=== PATIENT | male | born 1990 | race Caucasian/White ===

== ENCOUNTER 2022-10-28 13:23 | Inpatient (IN) | payer MEDICAID, OTHER ==
[2022-10-28] MEDS ORDERED: SODIUM CHLORIDE 0.9% 1,000 ML IV STA (13:46)
--- NOTE | 2022-10-28 13:50 | ED ---
General Adult HPI - General Source: patient, EMS, RN notes reviewed Mode of arrival: EMS Limitations: altered mental status <Harpal Griffith - Last Filed: 10/28/22 14:57> <He Simpson - Last Filed: 10/29/22 12:47> - General Chief complaint: Psychiatric Symptoms Stated complaint: AMS Time Seen by Provider: 10/28/22 13:25 - History of Present Illness Initial comments: Patient is a pleasant 32-year-old male presenting to the emergency department from the residential with concern for change in mental status. Patient has been there for 2 days. Patient has not slept in those 2 days. Patient has had limited oral intake. Patient has had minimal fluids. Patient has been naked and defecating on the floor. Unclear of any history previously. Patient was transferred from police and was there several days prior to this. They did report that patient had similar odd behavior and also was not sleeping at that time. Patient reportedly did methamphetamine prior to being arrested. Patient is a very poor historian and offers little history. (Harpal Griffith) - Related Data Home Medications Medication Instructions Recorded Confirmed No Known Home Medications 10/29/22 10/29/22 Allergies Allergy/AdvReac Type Severity Reaction Status Date / Time No Known Allergies Allergy Verified 10/29/22 10:56 Review of Systems ROS Other: All systems not noted in ROS Statement are negative. <Harpal Griffith - Last Filed: 10/28/22 14:57> ROS Other: All systems not noted in ROS Statement are negative. <He Simpson - Last Filed: 10/29/22 12:47> ROS Statement: Those systems with pertinent positive or pertinent negative responses have been documented in the HPI. Past Medical History Past Medical History: No Reported History History of Any Multi-Drug Resistant Organisms: None Reported Past Surgical History: No Surgical Hx Reported Past Psychological History: Depression Past Alcohol Use History: None Reported Past Drug Use History: None Reported <Harpal Griffith - Last Filed: 10/28/22 14:57> General Exam Limitations: altered mental status General appearance: alert, in no apparent distress Head exam: Present: atraumatic Eye exam: Present: normal appearance ENT exam: Present: mucous membranes dry Neck exam: Present: normal inspection. Absent: tenderness, meningismus Respiratory exam: Present: normal lung sounds bilaterally Cardiovascular Exam: Present: regular rate, normal rhythm GI/Abdominal exam: Present: soft. Absent: tenderness Extremities exam: Present: normal inspection Neurological exam: Present: alert, altered. Absent: motor sensory deficit Expanded Focused psych exam: Present: delusional (Patient answers that his name is "Pablo "), restlessness, flight of ideas, other (Hyperreligious.) Skin exam: Present: normal color <Harpal Griffith - Last Filed: 10/28/22 14:57> Course Vital Signs 10/28/22 10/28/22 10/29/22 13:25 16:28 09:04 Temperature 99.0 F Pulse Rate 90 78 80 Respiratory 18 18 16 Rate Blood Pressure 149/114 114/78 181/99 O2 Sat by Pulse 99 98 98 Oximetry EKG Findings - EKG Results: EKG: interpreted by ERMDian (Nonspecific ST-T), sinus rhythm, normal axis, normal QRS <Harpal Griffith - Last Filed: 10/28/22 14:57> Medical Decision Making - Lab Data Result diagrams: 10/28/22 14:34 10/28/22 14:34 <Harpal Griffith - Last Filed: 10/28/22 14:57> - Lab Data Result diagrams: 10/28/22 14:34 10/28/22 14:34 <He Simpson - Last Filed: 10/29/22 12:47> - Medical Decision Making Was pt. sent in by a medical professional or institution ([facility], [facility], urgent care, hospital, or usp...) When possible be specific @ -Patient brought in from residential Did you speak to anyone other than the patient for history (EMS, parent, family, police, friend...)? What history was obtained from this source @ -Operations Assistant officers help provide history Did you review nursing and triage notes (agree or disagree)? Why? @ -I reviewed and agree with nursing and triage notes Were old charts reviewed (outside hosp., previous admission, EMS record, old EKG, old radiological studies, urgent care reports/EKG's, usp records)? Report findings @ -No old charts were reviewed Differential Diagnosis (chest pain, altered mental status, abdominal pain women, abdominal pain men, vaginal bleeding, weakness, fever, dyspnea, syncope, headache, dizziness, GI bleed, back pain, seizure, CVA, palpatations, mental health, musculoskeletal)? @ -Differential Mental Health Depression, anxiety, bipolar, psychosis, schizophrenia, borderline personality, situational depression, adjustment disorder, behavioral disorder, brain tumor, malingering, substance abuse, encephalopathy, medication reaction, dementia, hypothyroidism, degenerative neurologic disorder, lupus.... This is not meant to be all-inclusive list EKG interpreted by me (3pts min.). @ -As above X-rays interpreted by me (1pt min.). @ -Chest x-ray does not reveal acute abnormality. CT interpreted by me (1pt min.). @ -Report reviewed U/S interpreted by me (1pt. min.). @ -None done What testing was considered but not performed or refused? (CT, X-rays, U/S, labs)? Why? @ -None What meds were considered but not given or refused? Why? @ -None Did you discuss the management of the patient with other professionals (professionals i.e. , PA, [employer] MODEL, lab, RT, psych nurse, social insurance adviser, assembler deck and hull, teacher, credit administration officer, case filler)? Give summary @ -No Was smoking cessation discussed for >3mins.? @ -No Was critical care preformed (if so, how long)? @ -No Were there social determinants of health that impacted care today? How? (Homelessness, low income, unemployed, alcoholism, drug addiction, transportation, low edu. Level, literacy, decrease access to med. care, residential, rehab)? @ -No Was there de-escalation of care discussed even if they declined (Discuss DNR or withdrawal of care, Hospice)? DNR status @ -No What co-morbidities impacted this encounter? (DM, HTN, Smoking, COPD, CAD, Canc er, CVA, ARF, Chemo, Hep., AIDS, mental health diagnosis, sleep apnea, morbid obesity)? @ -None Was patient admitted / discharged? Hospital course, mention meds given and route, prescriptions, significant lab abnormalities, going to OR and other pertinent info. @ -Patient presents with acute psychosis. Patient will be evaluated by mental health services for this. Undiagnosed new problem with uncertain prognosis? @ -No Drug Therapy requiring intensive monitoring for toxicity (Heparin, Nitro, Insulin, Cardizem)? @ -No Were any procedures done? @ -No Diagnosis/symptom? @ -Psychosis Acute, or Chronic, or Acute on Chronic? @ -Acute Uncomplicated (without systemic symptoms) or Complicated (systemic symptoms)? @ -default Side effects of treatment? @ -No Exacerbation, Progression, or Severe Exacerbation? @ -No Poses a threat to life or bodily function? How? (Chest pain, USA, VT, pneumonia, PE, COPD, DKA, ARF, appy, cholecystitis, CVA, Diverticulitis, Homicidal, Suicidal, threat to staff... and all critical care pts) @ -No (Harpal Griffith) I filled out a clinical certificate to have the patient evaluated upstairs on the psychiatric floor (He Simpson) - Lab Data Lab Results 10/28/22 10/28/22 10/28/22 Range/Units 13:58 14:34 14:34 WBC 13.6 H (3.8-10.6) k/uL RBC 4.80 (4.30-5.90) m/uL Hgb 14.7 (13.0-17.5) gm/dL Hct 43.3 (39.0-53.0) % MCV 90.3 (80.0-100.0) fL MCH 30.6 (25.0-35.0) pg MCHC 33.9 (31.0-37.0) g/dL RDW 12.9 (11.5-15.5) % Plt Count 306 (150-450) k/uL MPV 7.1 Neutrophils % 64 % Lymphocytes % 28 % Monocytes % 6 % Eosinophils % 1 % Basophils % 0 % Neutrophils # 8.6 H (1.3-7.7) k/uL Lymphocytes # 3.8 (1.0-4.8) k/uL Monocytes # 0.8 (0-1.0) k/uL Eosinophils # 0.1 (0-0.7) k/uL Basophils # 0.0 (0-0.2) k/uL PT 12.8 H (9.0-12.0) sec INR 1.3 H (<1.2) APTT 25.9 (22.0-30.0) sec Sodium (137-145) mmol/L Potassium (3.5-5.1) mmol/L Chloride (98-107) mmol/L Carbon Dioxide (22-30) mmol/L Anion Gap mmol/L BUN (9-20) mg/dL Creatinine (0.66-1.25) mg/dL Est GFR (CKD-EPI)AfAm (>60 ml/min/1.73 sqM) Est GFR (CKD-EPI)NonAf (>60 ml/min/1.73 sqM) Glucose (74-99) mg/dL POC Glucose (mg/dL) 95 (70-110) mg/dL POC Glu Bankruptcy Assistant ID Leti Brantley Calcium (8.4-10.2) mg/dL Total Bilirubin (0.2-1.3) mg/dL AST (17-59) U/L ALT (4-49) U/L Alkaline Phosphatase (38-126) U/L Creatine Kinase (55-170) U/L Total Protein (6.3-8.2) g/dL Albumin (3.5-5.0) g/dL Urine Color Urine Appearance (Clear) Urine pH (5.0-8.0) Ur Specific [place] (1.001-1.035) Urine Protein (Negative) Urine Glucose (UA) (Negative) Urine Ketones (Negative) Urine Blood (Negative) Urine Nitrite (Negative) Urine Bilirubin (Negative) Urine Urobilinogen (<2.0) mg/dL Ur Leukocyte Esterase (Negative) Urine RBC (0-5) /hpf Urine WBC (0-5) /hpf Amorphous Sediment (None) /hpf Hyaline Casts (0-2) /lpf Urine Mucus (None) /hpf Urine Opiates Screen (NotDetected) Ur Oxycodone Screen (NotDetected) Urine Methadone Screen (NotDetected) Ur Propoxyphene Screen (NotDetected) Ur Barbiturates Screen (NotDetected) U Tricyclic Antidepress (NotDetected) Ur Phencyclidine Scrn (NotDetected) Ur Amphetamines Screen (NotDetected) U Methamphetamines Scrn (NotDetected) U Benzodiazepines Scrn (NotDetected) Urine Cocaine Screen (NotDetected) U Marijuana (THC) Screen (NotDetected) Serum Alcohol mg/dL Coronavirus (PCR) (Not Detectd) 10/28/22 10/28/22 10/28/22 Range/Units 14:34 15:40 15:40 WBC (3.8-10.6) k/uL RBC (4.30-5.90) m/uL Hgb (13.0-17.5) gm/dL Hct (39.0-53.0) % MCV (80.0-100.0) fL MCH (25.0-35.0) pg MCHC (31.0-37.0) g/dL RDW (11.5-15.5) % Plt Count (150-450) k/uL MPV Neutrophils % % Lymphocytes % % Monocytes % % Eosinophils % % Basophils % % Neutrophils # (1.3-7.7) k/uL Lymphocytes # (1.0-4.8) k/uL Monocytes # (0-1.0) k/uL Eosinophils # (0-0.7) k/uL Basophils # (0-0.2) k/uL PT (9.0-12.0) sec INR (<1.2) APTT (22.0-30.0) sec Sodium 137 (137-145) mmol/L Potassium 3.8 (3.5-5.1) mmol/L Chloride 103 (98-107) mmol/L Carbon Dioxide 18 L (22-30) mmol/L Anion Gap 16 mmol/L BUN 24 H (9-20) mg/dL Creatinine 1.02 (0.66-1.25) mg/dL Est GFR (CKD-EPI)AfAm >90 (>60 ml/min/1.73 sqM) Est GFR (CKD-EPI)NonAf >90 (>60 ml/min/1.73 sqM) Glucose 88 (74-99) mg/dL POC Glucose (mg/dL) (70-110) mg/dL POC Glu Bankruptcy Assistant ID Calcium 9.7 (8.4-10.2) mg/dL Total Bilirubin 1.9 H (0.2-1.3) mg/dL AST 39 (17-59) U/L ALT 35 (4-49) U/L Alkaline Phosphatase 75 (38-126) U/L Creatine Kinase 308 H (55-170) U/L Total Protein 8.7 H (6.3-8.2) g/dL Albumin 5.0 (3.5-5.0) g/dL Urine Color Urine Appearance (Clear) Urine pH (5.0-8.0) Ur Specific [place] (1.001-1.035) Urine Protein (Negative) Urine Glucose (UA) (Negative) Urine Ketones (Negative) Urine Blood (Negative) Urine Nitrite (Negative) Urine Bilirubin (Negative) Urine Urobilinogen (<2.0) mg/dL Ur Leukocyte Esterase (Negative) Urine RBC (0-5) /hpf Urine WBC (0-5) /hpf Amorphous Sediment (None) /hpf Hyaline Casts (0-2) /lpf Urine Mucus (None) /hpf Urine Opiates Screen (NotDetected) Ur Oxycodone Screen (NotDetected) Urine Methadone Screen (NotDetected) Ur Propoxyphene Screen (NotDetected) Ur Barbiturates Screen (NotDetected) U Tricyclic Antidepress (NotDetected) Ur Phencyclidine Scrn (NotDetected) Ur Amphetamines Screen (NotDetected) U Methamphetamines Scrn (NotDetected) U Benzodiazepines Scrn (NotDetected) Urine Cocaine Screen (NotDetected) U Marijuana (THC) Screen (NotDetected) Serum Alcohol <10 mg/dL Coronavirus (PCR) (Not Detectd) 10/28/22 10/28/22 Range/Units 18:48 22:00 WBC (3.8-10.6) k/uL RBC (4.30-5.90) m/uL Hgb (13.0-17.5) gm/dL Hct (39.0-53.0) % MCV (80.0-100.0) fL MCH (25.0-35.0) pg MCHC (31.0-37.0) g/dL RDW (11.5-15.5) % Plt Count (150-450) k/uL MPV Neutrophils % % Lymphocytes % % Monocytes % % Eosinophils % % Basophils % % Neutrophils # (1.3-7.7) k/uL Lymphocytes # (1.0-4.8) k/uL Monocytes # (0-1.0) k/uL Eosinophils # (0-0.7) k/uL Basophils # (0-0.2) k/uL PT (9.0-12.0) sec INR (<1.2) APTT (22.0-30.0) sec Sodium (137-145) mmol/L Potassium (3.5-5.1) mmol/L Chloride (98-107) mmol/L Carbon Dioxide (22-30) mmol/L Anion Gap mmol/L BUN (9-20) mg/dL Creatinine (0.66-1.25) mg/dL Est GFR (CKD-EPI)AfAm (>60 ml/min/1.73 sqM) Est GFR (CKD-EPI)NonAf (>60 ml/min/1.73 sqM) Glucose (74-99) mg/dL POC Glucose (mg/dL) (70-110) mg/dL POC Glu Bankruptcy Assistant ID Calcium (8.4-10.2) mg/dL Total Bilirubin (0.2-1.3) mg/dL AST (17-59) U/L ALT (4-49) U/L Alkaline Phosphatase (38-126) U/L Creatine Kinase (55-170) U/L Total Protein (6.3-8.2) g/dL Albumin (3.5-5.0) g/dL Urine Color Yellow Urine Appearance Clear (Clear) Urine pH 6.0 (5.0-8.0) Ur Specific [place] 1.036 H (1.001-1.035) Urine Protein 1+ H (Negative) Urine Glucose (UA) Negative (Negative) Urine Ketones 3+ H (Negative) Urine Blood Trace H (Negative) Urine Nitrite Negative (Negative) Urine Bilirubin Negative (Negative) Urine Urobilinogen 2.0 (<2.0) mg/dL Ur Leukocyte Esterase Negative (Negative) Urine RBC 6 H (0-5) /hpf Urine WBC 5 (0-5) /hpf Amorphous Sediment Rare H (None) /hpf Hyaline Casts 9 H (0-2) /lpf Urine Mucus Many H (None) /hpf Urine Opiates Screen Not Detected (NotDetected) Ur Oxycodone Screen Not Detected (NotDetected) Urine Methadone Screen Not Detected (NotDetected) Ur Propoxyphene Screen Not Detected (NotDetected) Ur Barbiturates Screen Not Detected (NotDetected) U Tricyclic Antidepress Not Detected (NotDetected) Ur Phencyclidine Scrn Not Detected (NotDetected) Ur Amphetamines Screen Not Detected (NotDetected) U Methamphetamines Scrn Not Detected (NotDetected) U Benzodiazepines Scrn Not Detected (NotDetected) Urine Cocaine Screen Not Detected (NotDetected) U Marijuana (THC) Screen Detected H (NotDetected) Serum Alcohol mg/dL Coronavirus (PCR) Not Detected (Not Detectd) Disposition Is patient prescribed a controlled substance at d/c from ED?: No <Harpal Griffith - Last Filed: 10/28/22 14:57> Time of Disposition: 12:47 <He Simpson - Last Filed: 10/29/22 12:47> Clinical Impression: Psychosis Disposition: ADMITTED IP TO THIS HOSP Referrals: None,Stated [Primary Care Provider] - 1-2 days
[2022-10-28 14:00] LABS: Glucose,Whole Blood 95 mg/dL (70-110)
--- NOTE | 2022-10-28 14:16 | XR ---
EXAMINATION TYPE: XR chest 1V DATE OF EXAM: 10/28/2022 COMPARISON: NONE HISTORY: Psychiatric symptoms, altered mental status TECHNIQUE: Single frontal view of the chest is obtained. FINDINGS: There is no focal air space opacity, pleural effusion, or pneumothorax seen. The cardiac silhouette size is within normal limits. The osseous structures are intact. IMPRESSION: No acute process.
--- NOTE | 2022-10-28 14:18 | CT ---
EXAMINATION TYPE: CT brain wo con DATE OF EXAM: 10/28/2022 COMPARISON: None HISTORY: ams CT DLP: 1409.3 mGycm. Automated Exposure Control for Dose Reduction was Utilized. TECHNIQUE: CT scan of the head is performed without contrast. FINDINGS: There is no acute intracranial hemorrhage, mass effect, or midline shift identified. The ventricles and sulci are within normal limits in size. There is no air-fluid level in the left maxillary sinus consistent with acute sinusitis. The remainin g paranasal sinuses and mastoid air cells are well aerated. The globes are intact. IMPRESSION: 1. No acute bleed or mass effect. 2. Acute sinusitis involving the left maxillary sinus.
[2022-10-28 14:43] LABS: Basophils % (A) 0 %; Eosinophils # (A) 0.1 k/uL (0-0.7); Eosinophils % (A) 1 %; HCT 43.3 % (39.0-53.0); HGB 14.7 gm/dL (13.0-17.5); Lymphocytes # (A) 3.8 k/uL (1.0-4.8); Lymphocytes % (A) 28 %; MCH 30.6 pg (25.0-35.0); MCHC 33.9 g/dL (31.0-37.0); MCV 90.3 fL (80.0-100.0); Mean Platelet Volume 7.1; Monocytes # (A) 0.8 k/uL (0-1.0); Monocytes % (A) 6 %; Neutrophils # (A) 8.6 k/uL (1.3-7.7); Neutrophils % (A) 64 %; Platelet Count 306 k/uL (150-450); RDW 12.9 % (11.5-15.5); WBC 13.6 k/uL (3.8-10.6)
[2022-10-28 14:52] LABS: ALT 35 U/L (4-49); AST 39 U/L (17-59); African American GFR (CKD) >90 (>60 ml/min/1.73 sqM); Alkaline Phosphatase 75 U/L (38-126); Anion Gap 16 mmol/L; Blood Urea Nitrogen 24 mg/dL (9-20); Calcium 9.7 mg/dL (8.4-10.2); Carbon Dioxide 18 mmol/L (22-30); Chloride 103 mmol/L (98-107); Glucose 88 mg/dL (74-99); Non-African American GFR(CKD) >90 (>60 ml/min/1.73 sqM); Potassium 3.8 mmol/L (3.5-5.1); Sodium 137 mmol/L (137-145); Total Bilirubin 1.9 mg/dL (0.2-1.3); Total Protein 8.7 g/dL (6.3-8.2)
[2022-10-28 14:56] LABS: INR 1.3 (<1.2); Partial Thromboplastin Time 25.9 sec (22.0-30.0); Prothrombin Time 12.8 sec (9.0-12.0)
[2022-10-28 19:29] LABS: Amorphous Sediment,Urine Rare /hpf; Appearance,Urine Clear (Clear); Bilirubin,Urine Negative (Negative); Blood,Urine Trace (Negative); Color,Urine Yellow; Glucose,Urine (UA) Negative (Negative); Hyaline Casts,Urine 9 /lpf (0-2); Ketones,Urine 3+ (Negative); Leukocyte Esterase,Urine Negative (Negative); Mucus,Urine Many /hpf; Nitrite,Urine Negative (Negative); Protein,Urine 1+ (Negative); RBC,Urine 6 /hpf (0-5); Specific Gravity,Urine 1.036 (1.001-1.035); WBC,Urine 5 /hpf (0-5)
[2022-10-28 20:10] LABS: Amphetamine Screen,Urine Not Detected (NotDetected); Barbiturate Screen,Urine Not Detected (NotDetected); Benzodiazepines Screen,Urine Not Detected (NotDetected); Cocaine Screen,Urine Not Detected (NotDetected); Methadone Screen, Urine Not Detected (NotDetected); Opiate Screen,Urine Not Detected (NotDetected); Oxycodone Screen, Urine Not Detected (NotDetected); Phencyclidine Screen,Urine Not Detected (NotDetected); Tricyclic Antidepressant,Urine Not Detected (NotDetected); Urn Cannabinoid Scrn Detected (NotDetected)
[2022-10-29] MEDS ORDERED: OLANZapine 10 MG VIAL IM STA ×2 (01:19→11:50)
[2022-10-29] MEDS ORDERED: LORazepam 2 MG/ML INJ IM STA ×2 (02:04→12:43)
[2022-10-29] MEDS ORDERED: diphenhydrAMINE 50 MG/ML 1 ML VIAL IM STA (02:04)
[2022-10-29] MEDS ORDERED: OLANZapine 10 MG VIAL IM PRN (15:41)
[2022-10-29] MEDS ORDERED: OLANZapine 7.5 MG TAB PO PRN (15:41)
[2022-10-29] MEDS ORDERED: IBUPROFEN 600 MG TAB PO PRN (15:41)
[2022-10-29] MEDS ORDERED: MAGNESIUM HYDROXIDE 2,400 MG/30 ML CUP PO PRN (15:41)
[2022-10-29] MEDS ORDERED: MAG HYDROX/AL HYDROX/SIMETH 30 ML CUP PO PRN (15:41)
[2022-10-29] MEDS ORDERED: OLANZapine 10 MG TAB PO PRN (15:53)
[2022-10-29] MEDS ORDERED: HALOPERIDOL LACTATE 5 MG/ML 1 ML VIAL IM PRN (22:44)
[2022-10-29] MEDS ORDERED: LORazepam 2 MG/ML INJ IM PRN (22:45)
[2022-10-30] MEDS ORDERED: HALOPERIDOL LACTATE 5 MG/ML 1 ML VIAL IM STA (01:42)
[2022-10-30] MEDS: haloperidoL 5 MG TAB PO PRN ×2 (10:57→18:23)
[2022-10-30] MEDS: LORazepam 1 MG TAB PO PRN ×3 (10:58→21:15)
[2022-10-30 11:33] VITALS: BMI 17.6
[2022-10-30] MEDS ORDERED: traZODone HCL 100 MG TAB PO PRN (12:02)
--- NOTE | 2022-10-30 12:08 | P.HP ---
Psychiatric H&P - . H&P Date: 10/30/22 History & Physical: Allergies Allergy/AdvReac Type Severity Reaction Status Date / Time No Known Allergies Allergy Verified 10/29/22 10:56 Vital Signs Temp 98.7 F 10/29/22 16:28 Pulse 116 H 10/29/22 16:28 Resp 14 10/29/22 16:28 BP 143/91 10/29/22 16:28 Pulse Ox 97 10/29/22 16:28 FiO2 Intake & Output 10/29/22 10/30/22 10/30/22 18:59 06:59 18:59 Weight 58.967 kg Laboratory Last Values WBC 13.6 k/uL (3.8-10.6) H 10/28/22 14:34 RBC 4.80 m/uL (4.30-5.90) 10/28/22 14:34 Hgb 14.7 gm/dL (13.0-17.5) 10/28/22 14:34 Hct 43.3 % (39.0-53.0) 10/28/22 14:34 MCV 90.3 fL (80.0-100.0) 10/28/22 14:34 MCH 30.6 pg (25.0-35.0) 10/28/22 14:34 MCHC 33.9 g/dL (31.0-37.0) 10/28/22 14:34 RDW 12.9 % (11.5-15.5) 10/28/22 14:34 Plt Count 306 k/uL (150-450) 10/28/22 14:34 MPV 7.1 10/28/22 14:34 Neutrophils % 64 % 10/28/22 14:34 Lymphocytes % 28 % 10/28/22 14:34 Monocytes % 6 % 10/28/22 14:34 Eosinophils % 1 % 10/28/22 14:34 Basophils % 0 % 10/28/22 14:34 Neutrophils # 8.6 k/uL (1.3-7.7) H 10/28/22 14:34 Lymphocytes # 3.8 k/uL (1.0-4.8) 10/28/22 14:34 Monocytes # 0.8 k/uL (0-1.0) 10/28/22 14:34 Eosinophils # 0.1 k/uL (0-0.7) 10/28/22 14:34 Basophils # 0.0 k/uL (0-0.2) 10/28/22 14:34 PT 12.8 sec (9.0-12.0) H 10/28/22 14:34 INR 1.3 (<1.2) H 10/28/22 14:34 APTT 25.9 sec (22.0-30.0) 10/28/22 14:34 Sodium 137 mmol/L (137-145) 10/28/22 14:34 Potassium 3.8 mmol/L (3.5-5.1) 10/28/22 14:34 Chloride 103 mmol/L (98-107) 10/28/22 14:34 Carbon Dioxide 18 mmol/L (22-30) L 10/28/22 14:34 Anion Gap 16 mmol/L 10/28/22 14:34 BUN 24 mg/dL (9-20) H 10/28/22 14:34 Creatinine 1.02 mg/dL (0.66-1.25) 10/28/22 14:34 Est GFR (CKD-EPI)AfAm >90 (>60 ml/min/1.73 sqM) 10/28/22 14:34 Est GFR (CKD-EPI)NonAf >90 (>60 ml/min/1.73 sqM) 10/28/22 14:34 Glucose 88 mg/dL (74-99) 10/28/22 14:34 POC Glucose (mg/dL) 95 mg/dL (70-110) 10/28/22 13:58 POC Glu Service Order Dispatcher Chief ID Leti Brantley 10/28/22 13:58 Calcium 9.7 mg/dL (8.4-10.2) 10/28/22 14:34 Total Bilirubin 1.9 mg/dL (0.2-1.3) H 10/28/22 14:34 AST 39 U/L (17-59) 10/28/22 14:34 ALT 35 U/L (4-49) 10/28/22 14:34 Alkaline Phosphatase 75 U/L (38-126) 10/28/22 14:34 Creatine Kinase 308 U/L (55-170) H 10/28/22 15:40 Total Protein 8.7 g/dL (6.3-8.2) H 10/28/22 14:34 Albumin 5.0 g/dL (3.5-5.0) 10/28/22 14:34 TSH 0.701 mIU/L (0.465-4.680) 10/28/22 14:30 Urine Color Yellow 10/28/22 18:48 Urine Appearance Clear (Clear) 10/28/22 18:48 Urine pH 6.0 (5.0-8.0) 10/28/22 18:48 Ur Specific [place] 1.036 (1.001-1.035) H 10/28/22 18:48 Urine Protein 1+ (Negative) H 10/28/22 18:48 Urine Glucose (UA) Negative (Negative) 10/28/22 18:48 Urine Ketones 3+ (Negative) H 10/28/22 18:48 Urine Blood Trace (Negative) H 10/28/22 18:48 Urine Nitrite Negative (Negative) 10/28/22 18:48 Urine Bilirubin Negative (Negative) 10/28/22 18:48 Urine Urobilinogen 2.0 mg/dL (<2.0) 10/28/22 18:48 Ur Leukocyte Esterase Negative (Negative) 10/28/22 18:48 Urine RBC 6 /hpf (0-5) H 10/28/22 18:48 Urine WBC 5 /hpf (0-5) 10/28/22 18:48 Amorphous Sediment Rare /hpf (None) H 10/28/22 18:48 Hyaline Casts 9 /lpf (0-2) H 10/28/22 18:48 Urine Mucus Many /hpf (None) H 10/28/22 18:48 Urine Opiates Screen Not Detected (NotDetected) 10/28/22 18:48 Ur Oxycodone Screen Not Detected (NotDetected) 10/28/22 18:48 Urine Methadone Screen Not Detected (NotDetected) 10/28/22 18:48 Ur Propoxyphene Screen Not Detected (NotDetected) 10/28/22 18:48 Ur Barbiturates Screen Not Detected (NotDetected) 10/28/22 18:48 U Tricyclic Antidepress Not Detected (NotDetected) 10/28/22 18:48 Ur Phencyclidine Scrn Not Detected (NotDetected) 10/28/22 18:48 Ur Amphetamines Screen Not Detected (NotDetected) 10/28/22 18:48 U Methamphetamines Scrn Not Detected (NotDetected) 10/28/22 18:48 U Benzodiazepines Scrn Not Detected (NotDetected) 10/28/22 18:48 Urine Cocaine Screen Not Detected (NotDetected) 10/28/22 18:48 U Marijuana (THC) Screen Detected (NotDetected) H 10/28/22 18:48 Serum Alcohol <10 mg/dL 10/28/22 15:40 Coronavirus (PCR) Not Detected (Not Detectd) 10/28/22 22:00 10/30/22 11:38 IDENTIFYING DATA: Patient is a 32-year-old male, currently lives with his grandmother in a house, 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 Patient apparently was in the nursing home for about 2 days. Patient was having mental status changes. According to report and auscultation. Patient has been having poor sleep or oral intake, has been naked defecating on the floor, acting psychotic and also has been reporting methamphetamine abuse. Patient's urine drug is positive for THC only. Patient had a computed tomography scan of his brain which did not show any acute changes. Patient has received several when necessary's in the ER and also on the psychiatric unit as he is admitted involuntary for aggression and agitation and bizarre and inappropriate behavior. Patient is currently on a one-to-one sitter. Patient was seen today in agreeable to speak to blog writer in the hallway. Patient states that he "called the wrong number" and states that he feels like he is in a "space ship". He made several bizarre and illogical statements had loose associations, he was rambling at times. He was bizarre and responding to internal stimuli. He spoke about himself and third person. He referred to being in the hospital as "just a game". He was also endorsing paranoia towards others. Had poor impulse control poor reality testing. He believes that it is "09/01/2022 however does know where he isn'this full name. Patient denies any suicidal or homicidal ideations intent or plan. At this time patient denies any auditory or visual hallucinations. Patient was admitting to using methamphetamine "all day" and has a history of repeated use. He also states that he smokes marijuana heavily, has been drinking alcohol as well however he claims that it is occasional. PAST PSYCHIATRIC HISTORY: Patient states that he has no previous psychiatric history however does abuse substances including methamphetamine. Patient denies being on any psychiatric medications. Patient denies any previous psychiatric hospitalizations. Patient denies any psychiatric outpatient follow-up. Patient denies any history of suicide attempts in the past. Past Medical History: No Reported History History of Any Multi-Drug Resistant Organisms: None Reported Past Surgical History: No Surgical Hx Reported Past Psychological History: Depression Past Alcohol Use History: None Reported Past Drug Use History: None Reported ALLERGIES: as per EMR CHEMICAL DEPENDENCY HISTORY: as per HPI FAMILY PSYCHIATRIC/SUBSTANCE USE HISTORY: denies SOCIAL HISTORY: Patient was born and raised in [facility]. States that now he lives in [place] and is a dual citizen, he lives with his grandmother and house. 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 He denies having any kids he is not . He came from nursing home before coming into the hospital MENTAL STATUS EXAM: General Appearance: Patient appears to be unshaven, disheveled unkempt hair, stated age is alert, bizarre, responding to internal stimuli. Patient appears to have poor hygiene and grooming. Behavior: Patient is seated without any agitated behavior. Arron, paranoid, resp onding to internal stimuli. Speech: Patient's speech is fluent and nonpressured. Rambling. Mood/Affect: Patient reports their mood is "okay", affect is incongruent and constricted. Suicidality/Homicidality: Patient denies having any homicidal ideation intent or plan. Denies any suicidal ideations intent or plan Perceptions: Patient denies any visual hallucinations and denies any auditory hallucinations Though content/process: Bizarre content, rambling, illogical, loose associations. Paranoia. Memory and concentration: AOX2, is not know today's date, difficult to redirect in conversation. Cannot spell "WORLD" backwards Judgment and insight: poor STRENGTHS/WEAKNESSES: strength is that patient is resilient. Weakness is that patient has poor judgment and is impulsive INTELLECT: average IMPRESSIONS: Psychosis unspecified, rule out substance-induced psychotic disorder Methamphetamine use disorder Cannabis use disorder Nicotine dependence PLAN: -Patient is admitted under involuntary status to MHU for stabilization of psychiatric symptoms and safety. Patient has not signed adult voluntary form and medication consent and is placed in patient's chart. A second certification was completed and along with petition will be filed for court. -Medications : Will start patient on paliperidone by mouth 3 mg twice a day for psychosis, trazodone when necessary for insomnia. -Ativan and Haldol PRN for agitation/aggression -Patient was informed of the risks, benefits and side effects of the medication -Internal Medicine consult to perform medical evaluation and physical. -NRT - nicotine patch -SW on board for discharge planning. Encourage patient to participate in groups to work on coping skills. Will await deferral and court date. 10/30/22 12:03 10/30/22 12:08
[2022-10-30] MEDS: NICOTINE 14MG/24HR PATCH TRANSDERM SCH (13:58)
[2022-10-30] MEDS: PALIPERIDONE 3 MG TAB.ER.24 PO SCH ×3 (13:58→21:15)
[2022-10-30 17:56] LABS: Chol/HDL Ratio 4.34 Ratio; LDL Cholesterol,Calculated 106.2 mg/dL (0.0-131.0); VLDL Calculation 17.72 mg/dL (5.00-40.00)
[2022-10-30] MEDS: cloNIDine HCL 0.1 MG TAB PO PRN (18:26)
--- NOTE | 2022-10-31 04:15 | P.PN ---
Progress Note - Text Progress Note Date: 10/30/22 patient continues to be psychotic , inappropriate for interview
--- NOTE | 2022-10-31 04:16 | P.PN ---
Progress Note - Text Progress Note Date: 10/29/22 aggressive, psychotic patient , cant evaluate at this time
[2022-10-31] MEDS: PALIPERIDONE 3 MG TAB.ER.24 PO SCH (08:33)
[2022-10-31] MEDS: NICOTINE 14MG/24HR PATCH TRANSDERM SCH (08:33)
[2022-10-31] MEDS: amLODIPine 5 MG TAB PO SCH (08:33)
[2022-10-31] MEDS: ACETAMINOPHEN TAB 325 MG TAB PO PRN (08:34)
--- NOTE | 2022-10-31 14:49 | P.PN ---
Progress Note - Text Progress Note Date: 10/31/22 Interval history: Patient was seen today wandering the hallways and was agreeable to be seen by loan underwriter. he continues to be on a 1 to 1 sitter. Patient was also noted earlier to be attending groups. He continues to have a fairly constricted affect. He claims that he would like to have his glasses back. He claims that he has at his home with his grandmother however she is not answering the phone. He states that "can I just leave for a little bit to get my glasses and I'll come back". She continues to have fairly poor insight and judgment, was illogical at times however this is improving. He is still responding to internal stimuli however this is also improving. Apparently patient claims that he slept better last night. He has been interacting more with others. He is denying any depression or anxiety at this time. He was less bizarre during interaction and more on topic. Denying any auditory or visual hallucinations. Denying any suicidal or homicidal ideations intent or plan. Mental status examination: General Appearance: Patient appears to be unshaven, stated age is alert, bizarre, less responding to internal stimuli. Patient appears to have improving hygiene and grooming. Behavior: Patient is seated without any agitated behavior. Bizarre, less paranoid, responding to internal stimuli. Speech: Patient's speech is fluent and nonpressured. Rambling. Mood/Affect: Patient reports their mood is "ok", affect is incongruent and constricted. Suicidality/Homicidality: Patient denies having any homicidal ideation intent or plan. Denies any suicidal ideations intent or plan Perceptions: Patient denies any visual hallucinations and denies any auditory hallucinations Though content/process: Bizarre content, rambling, illogical, loose associations. Paranoia last Memory and concentration: AOX2-3, difficult to redirect in conversation Judgment and insight: poor, improving mildly IMPRESSIONS: Psychosis unspecified, rule out substance-induced psychotic disorder Methamphetamine use disorder Cannabis use disorder Nicotine dependence PLAN: -Patient is admitted under involuntary status to MHU for stabilization of psychiatric symptoms and safety. Patient has not signed adult voluntary form and medication consent and is placed in patient's chart. A second certification was completed and along with petition will be filed for court. -Medications : Increase paliperidone by mouth 3 mg day + 6 mg qhs for psychosis, trazodone 100 mg when necessary for insomnia. -Ativan and Haldol PRN for agitation/aggression -NRT - nicotine patch -SW on board for discharge planning. Encourage patient to participate in groups to work on coping skills. patient deferred and is agreeable to treatment. continue with 1:1 sitter for now.
[2022-10-31] MEDS: cloNIDine HCL 0.1 MG TAB PO PRN (20:13)
[2022-10-31] MEDS: LORazepam 1 MG TAB PO PRN (20:13)
[2022-10-31] MEDS ORDERED: PALIPERIDONE 6 MG TAB.ER.24 PO SCH (21:00)
[2022-11-01] MEDS: amLODIPine 5 MG TAB PO SCH (09:24)
[2022-11-01] MEDS: PALIPERIDONE 3 MG TAB.ER.24 PO SCH ×2 (09:24→20:26)
[2022-11-01] MEDS: NICOTINE 14MG/24HR PATCH TRANSDERM SCH (09:26)
[2022-11-01] MEDS ORDERED: chlorproMAZINE 25 MG TAB PO ONE (10:33)
[2022-11-01] MEDS: cloNIDine HCL 0.1 MG TAB PO PRN (10:54)
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
[2022-11-01] MEDS: LORazepam 1 MG TAB PO PRN (18:24)
[2022-11-02] MEDS: haloperidoL 5 MG TAB PO PRN (01:03)
[2022-11-02] MEDS: amLODIPine 5 MG TAB PO SCH (08:16)
[2022-11-02] MEDS: NICOTINE 14MG/24HR PATCH TRANSDERM SCH (08:16)
[2022-11-02] MEDS: PALIPERIDONE 3 MG TAB.ER.24 PO SCH ×2 (08:17→20:14)
--- NOTE | 2022-11-02 11:29 | P.PN ---
Progress Note - Text Progress Note Date: 11/02/22 Interval history: Patient was seen today wandering the hallways and was agreeable to be seen by lyric writer. He was seen participating in group today. He is not on a sitter anymore. He was also seen talking to the clinical nursing assistant. Patient appears to be more directable today. He claims that he is reading a book now that his mother brought him. He was apologetic for what had occurred and knows that he was in [facility] previously. He has been taking his medications, not reporting any side effects. He was more appropriate today, mildly improving insight and judgment. He is denying any irritability, states that the racing thoughts have been improving, he was more on topic and less tangential. He is not responding to internal stimuli. he claims that he had difficulty with sleep last night and requested medications extra. He is denying any depression or anxiety at this time. Denying any auditory or visual hallucinations. Denying any suicidal or homicidal ideations intent or plan. Mental status examination: General Appearance: Patient appears to be unshaven, stated age is alert, less bi zarre,not responding to internal stimuli. Patient appears to have improving hygiene and grooming. Behavior: Patient is seated without any agitated behavior. less paranoid Speech: Patient's speech is fluent and nonpressured. Rambling, improving Mood/Affect: Patient reports their mood is "better", affect is incongruent and constricted. Suicidality/Homicidality: Patient denies having any homicidal ideation intent or plan. Denies any suicidal ideations intent or plan Perceptions: Patient denies any visual hallucinations and denies any auditory hallucinations Though content/process: less Bizarre content, rambling,more logical, Paranoia less Memory and concentration: AOX2-3, difficult to redirect in conversation Judgment and insight: poor, improving mildly IMPRESSIONS: Psychosis unspecified, rule out substance-induced psychotic disorder Methamphetamine use disorder Cannabis use disorder Nicotine dependence PLAN: -Patient is admitted under involuntary status to MHU for stabilization of psychiatric symptoms and safety. Patient has not signed adult voluntary form and medication consent and is placed in patient's chart. -Medications : paliperidone by mouth 3 mg day + 9 mg qhs for psychosis, will need to give patient GASTON Perseris likely saturday to ensure compliance. trazodone 100 mg qhs for insomnia. -Ativan and Haldol PRN for agitation/aggression -NRT - nicotine patch -SW on board for discharge planning. Encourage patient to participate in groups to work on coping skills. patient deferred and is agreeable to treatment. possible discharge early next week if patient continues to improve, he continues to be a [facility] hold. will need to give GASTON likely saturday, possible d/c saturday
[2022-11-02] MEDS: LORazepam 1 MG TAB PO PRN (16:40)
[2022-11-02] MEDS: traZODone HCL 100 MG TAB PO SCH (20:14)
[2022-11-03] MEDS: amLODIPine 5 MG TAB PO SCH (07:54)
[2022-11-03] MEDS: PALIPERIDONE 3 MG TAB.ER.24 PO SCH ×2 (07:55→20:31)
[2022-11-03] MEDS: NICOTINE 14MG/24HR PATCH TRANSDERM SCH (07:55)
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
[2022-11-03] MEDS: LORazepam 1 MG TAB PO PRN ×2 (09:07→14:34)
[2022-11-03] MEDS: traZODone HCL 100 MG TAB PO SCH (20:31)
[2022-11-04 07:03] VITALS: RESP 16
[2022-11-04] MEDS: NICOTINE 14MG/24HR PATCH TRANSDERM SCH (08:22)
[2022-11-04] MEDS: amLODIPine 5 MG TAB PO SCH (08:22)
[2022-11-04] MEDS: PALIPERIDONE 3 MG TAB.ER.24 PO SCH ×2 (08:22→19:54)
[2022-11-04] MEDS: LORazepam 1 MG TAB PO PRN ×3 (08:26→20:35)
--- NOTE | 2022-11-04 09:50 | P.PN ---
Subjective Progress Note Date: 11/04/22 Principal diagnosis: IMPRESSIONS: Psychosis unspecified, rule out substance-induced psychotic disorder Methamphetamine use disorder Cannabis use disorder Nicotine dependence Interval history: Patient came readily for an interview. He has been participating well in the program. He has been taking his medications, not reporting any side effects. He points out that in the past he was prescribed Xanax and 20 mg of Paxil by his doctor in [place]. He says that he has not been experiencing any depression on the current medicine or having any sense of withdrawal off the Paxil and Xanax. He says that he slept well last night. Denying any auditory or visual hallucinations. Denying any suicidal or homicidal ideations intent or plan. He says that he does not have a long-term history of psychosis but that he does have a long-term history of running away from life into video games marijuana and other substances. He wants to go to rehab to stay off of marijuana and othe r substances. Mental status examination: Pleasant alert good eye contact General Appearance: Patient appears to have reasonable self-care is cooperative Behavior: Patient is seated without any agitated behavior. I could not detect any paranoia Speech: Patient's speech is fluent he is quite intelligent but did jump in and finish my sentences for me at times and he was on topic just a little pressured. Mood/Affect: Patient reports their mood is "better", affect is congruent Suicidality/Homicidality: Patient denies having any homicidal ideation intent or plan. Denies any suicidal ideations intent or plan Perceptions: Patient denies any visual hallucinations and denies any auditory hallucinations Though content/process: less Bizarre content, rambling,more logical, Paranoia less Memory and concentration: AOX2-3, difficult to redirect in conversation Judgment and insight: poor, improving mildly Assessment: Patient seems be doing better and I do agree that he will need to go to rehab otherwise such as get back into trying some other substances makes him crazy. He is tolerating the current medicine and it does seem to be helping IMPRESSIONS: Psychosis unspecified, rule out substance-induced psychotic disorder Methamphetamine use disorder Cannabis use disorder Nicotine dependence PLAN: No change in medication at this time suggested -Patient is admitted under involuntary status to [facility] for stabilization of psychiatric symptoms and safety. Patient has not signed adult voluntary form and medication consent and is placed in patient's chart. -Medications : paliperidone by mouth 3 mg day + 9 mg qhs for psychosis, will need to give patient GASTON Perseris likely saturday to ensure compliance. trazodone 100 mg qhs for insomnia. -Ativan and Haldol PRN for agitation/aggression -NRT - nicotine patch -SW on board for discharge planning. Encourage patient to participate in groups to work on coping skills. patient deferred and is agreeable to treatment. possible discharge early next week if patient continues to improve, he continues to be a longterm hold. will need to give GASTON likely saturday, possible d/c saturday Objective - Vital Signs Vital signs: Vital Signs Temp 97.5 F L 11/01/22 11:05 Pulse 101 H 11/04/22 06:59 Resp 16 11/04/22 06:59 BP 127/65 11/04/22 06:59 Pulse Ox 98 11/04/22 06:59 FiO2 - Labs CBC & Chem 7: 10/28/22 14:34 10/28/22 14:34
[2022-11-04] MEDS: ACETAMINOPHEN TAB 325 MG TAB PO PRN (15:52)
[2022-11-04] MEDS: traZODone HCL 100 MG TAB PO SCH (19:54)
[2022-11-05] MEDS: NICOTINE 14MG/24HR PATCH TRANSDERM SCH (08:00)
[2022-11-05] MEDS: PALIPERIDONE 3 MG TAB.ER.24 PO SCH (08:00)
[2022-11-05] MEDS: amLODIPine 5 MG TAB PO SCH (08:00)
--- NOTE | 2022-11-05 11:00 | P.PN ---
Progress Note - Text Progress Note Date: 11/05/22 Interval history: Patient was seen today wandering the hallways and was agreeable to be seen by scientific technical writer. Patient appears to have improvement in his hygiene and grooming today. He has been going to multiple groups and participating fairly well. He states that he is "done with doing drugs". Claims that his mood and appetite have been improving. Denying any anxiety at this time. We spoke about the long acting injection but she is okay with taking today. He appears to more future oriented, more logical today in his responses. Denying any irritability. states that the racing thoughts have been improving and that he is able to sleep throughout the night. He is not responding to internal stimuli. Denying any auditory or visual hallucinations. Denying any suicidal or homicidal ideations intent or plan. Mental status examination: General Appearance: Patient appears to be unshaven, stated age is alert, more directable today, cooperative. Patient appears to have improving hygiene and grooming. Behavior: Patient is seated without any agitated behavior. Speech: Patient's speech is fluent and nonpressured, improving Mood/Affect: Patient reports their mood is "good", affect is incongruent and constricted. Suicidality/Homicidality: Patient denies having any homicidal ideation intent or plan. Denies any suicidal ideations intent or plan Perceptions: Patient denies any visual hallucinations and denies any auditory hallucinations Though content/process: less Bizarre content, more logical and goal oriented. Memory and concentration: AOX3, difficult to redirect in conversation Judgment and insight: improving mildly IMPRESSIONS: Psychosis unspecified, rule out substance-induced psychotic disorder Methamphetamine use disorder Cannabis use disorder Nicotine dependence PLAN: -Patient is admitted under involuntary status to MHU for stabilization of psychiatric symptoms and safety. Patient has not signed adult voluntary form and medication consent and is placed in patient's chart. -Medications : decrease paliperidone by mouth 3 mg day + 3 mg qhs for psychosis, will give patient GASTON Perseris 120 mg IM today. trazodone 100 mg qhs for insomnia. -Ativan and Haldol PRN for agitation/aggression -NRT - nicotine patch -SW on board for discharge planning. Encourage patient to participate in groups to work on coping skills. patient deferred and is agreeable to treatment. will need to give GASTON today and likely d/c saturday. patient is a [facility] hold.
[2022-11-05] MEDS ORDERED: risperiDONE 120 MG SYR (NO COST) PHARMACY STOCK SQ ONE (11:30)
[2022-11-05] MEDS: LORazepam 1 MG TAB PO PRN ×2 (11:38→20:14)
[2022-11-05] MEDS: ACETAMINOPHEN TAB 325 MG TAB PO PRN ×2 (11:39→20:14)
[2022-11-05] MEDS: traZODone HCL 100 MG TAB PO SCH (20:10)
[2022-11-05] MEDS ORDERED: PALIPERIDONE 3 MG TAB.ER.24 PO SCH (21:00)
[2022-11-06 06:42] VITALS: PULSE 93; TEMP 98.3
[2022-11-06] MEDS: PALIPERIDONE 3 MG TAB.ER.24 PO SCH (08:19)
[2022-11-06] MEDS: NICOTINE 14MG/24HR PATCH TRANSDERM SCH (08:19)
[2022-11-06] MEDS: amLODIPine 5 MG TAB PO SCH (08:19)
[2022-11-06] MEDS: LORazepam 1 MG TAB PO PRN (08:21)
[2022-11-06] MEDS: ACETAMINOPHEN TAB 325 MG TAB PO PRN (08:49)
[2022-11-06 09:49] VITALS: BP 134/91
--- NOTE | 2022-11-06 11:17 | P.DS ---
Providers Date of admission: 10/29/22 15:39 Expected date of discharge: 11/06/22 Attending physician: Mert Donnelly MD Consults: 10/29/22 15:41 Consult Physician Routine Consulting Provider: Stanley Physician Consult Reason/Comments: H&P and medical Do you want consulting provider notified?: Yes Primary care physician: Stated None - Discharge Diagnosis(es) (1) Unspecified psychosis Current Visit: Yes Status: Acute Priority: High (2) Methamphetamine use disorder, moderate Current Visit: Yes Status: Acute Priority: High (3) Cannabis use disorder Current Visit: Yes Status: Acute Priority: High (4) Nicotine dependence Current Visit: Yes Status: Acute Priority: Low Hospital Course: Admission HPI: Admission note was completed by [speech writer] "[Patient is a 32-year-old male, currently lives with his grandmother in a house, 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 Patient presented to the hospital on 10/28 escorted by correctional officers from the group home. Patient apparently was in the group home for about 2 days. Patient was having mental status changes. According to report and auscultation. Patient has been having poor sleep or oral intake, has been naked defecating on the floor, acting psychotic and also has been reporting methamphetamine abuse. Patient's urine drug is positive for THC only. Patient had a computed tomography scan of his brain which did not show any acute changes. Patient has received several when necessary's in the ER and also on the psychiatric unit as he is admitted involuntary for aggression and agitation and bizarre and inappropriate behavior. Patient is currently on a one-to-one sitter. Patient was seen today in agreeable to speak to speech writer in the hallway. Patient states that he "called the wrong number" and states that he feels like he is in a "space ship". He made several bizarre and illogical statements had loose associations, he was rambling at times. He was bizarre and responding to internal stimuli. He spoke about himself and third person. He referred to being in the hospital as "just a game". He was also endorsing paranoia towards others. Had poor impulse control poor reality testing. He believes that it is "09/01/2022 however does know where he isn'this full name. Patient denies any suicidal or homicidal ideations intent or plan. At this time patient denies any auditory or visual hallucinations. Patient was admitting to using methamphetamine "all day" and has a history of repeated use. He also states that he smokes marijuana heavily, has been drinking alcohol as well however he claims that it is occasional.]" Hospital course: Upon admission to the unit patient was [admitted involuntarily on a petition and certificate and a second certificate was completed and faxed with the courts]. [Patient ended up signing a deferral with the staff attorney and agreeing to treatment.] [] Patient was initially bizarre and repsonding to internal stimuli, with treatment and time her got along well with other patients on the unit and followed unit protocol. Patient was compliant with the medications and denied any side effects throughout hospital course. Patient was started on [Invega and increased to a total dose of 9 mg daily for mood stabilization/psychosis, Transitioned onto Perseis SQ 120 mg IM given on 11/05 and next dose will be due on 12/03, trazodone 100 mg qhs for insomnia]. Patient spoke of [his] stressors and engaged in therapy both group and individual. Patient was also seen by medical team for history and physical exam. [] Throughout the course of the hospitalization patient gradually improved with regards to [mood, anxiety], psychosis, sleep and [returned back to their baseline level of functioning]. On the day of discharge patient denied any suicidal or homicidal ideations intent or plan denied any auditory or visual hallucinations. Patient endorsed wanting to live for [his health, future and family.] The patient denied any access to guns or weapons. Patient denied any paranoia and did not endorse any delusions. Patient does have a significant history of substance abuse [and] was counseled on abstaining from all substances including alcohol and marijuana. [Patient was offered however declined inpatient substance-abuse rehab.] [Patient elected to do outpatient substance use treatment program through [facility].] Patient was also counseled on the medications and need for regular compliance and was encouraged to follow-up with their outpatient appointment for mental health and also for primary care. SW will contact group home today to have patient transferred back to group home as he is a current group home hold. Mental status exam: General Appearance: Patient appears to be unshaven, stated age is alert, pleasant, and cooperative. Patient is in no acute distress and has improved hygiene and grooming Behavior: Patient is calmly seated without any agitated behavior. Speech: Patient's speech is fluent and nonpressured. Mood/Affect: Patient reports their mood is "[good]", affect is congruent and euthymic. Suicidality/Homicidality: Patient denies having any suicidal or homicidal ideation intent or plan. Perceptions: Patient denies any auditory or visual hallucinations. Though content/process: There is no evidence of any delusional thought content and thought process is linear and goal-directed. [more future oriented] Memory and concentration: AOX3, grossly intact for the purposes of this session. Can spell "WORLD" backwards correctly. Judgment and insight: [chronically poor, however has] improved with guarded prognosis Impression: []Psychosis NOS, r/o substance induced psychotic disorder methamphetamine use disorder moderate cannabis use disorder [Nicotine dependence] Plan: -Continue with discharge today as patient has improved and stabilized psychiatrically and is not currently an imminent threat to [himself] and/or others. [Patient will remain at chronically elevated risk for harm to self and/or others due to his impulsivity and polysubstance abuse.] -Continue medications: d/c PO invega, he was transitioned onto Perseris SQ 120 mg IM given on 11/05 and next dose will be due in one month on 12/03, trazodone 100 mg qhs prn for insomnia -Patient was counseled on the need for medication compliance and appropriate follow-up at mental health and also primary care for medical issues. Patient verbalized understanding and agreed. -Social work to [arrange for and conduct family meeting to ensure safety upon discharge and answer any questions/concerns.] Social work also to arrange for patients follow up appointments [with [facility]] for psychiatric care along with follow up with primary care provider. -Patient counseled on abstaining from recreational drugs and marijuana and alcohol. Was informed/educated on the adverse effects on their physical and mental health. [Patient verbally agreed and understood]. [Patient was offered substance abuse treatment however declined at this time.] -Patient was instructed to return to the hospital or seek immediate medical care if their psychiatric or medical symptoms do worsen or reoccur. Allergies Allergy/AdvReac Type Severity Reaction Status Date / Time No Known Allergies Allergy Verified 10/29/22 10:56 Laboratory Results WBC 13.6 k/uL (3.8-10.6) H 10/28/22 14:34 RBC 4.80 m/uL (4.30-5.90) 10/28/22 14:34 Hgb 14.7 gm/dL (13.0-17.5) 10/28/22 14:34 Hct 43.3 % (39.0-53.0) 10/28/22 14:34 MCV 90.3 fL (80.0-100.0) 10/28/22 14:34 MCH 30.6 pg (25.0-35.0) 10/28/22 14:34 MCHC 33.9 g/dL (31.0-37.0) 10/28/22 14:34 RDW 12.9 % (11.5-15.5) 10/28/22 14:34 Plt Count 306 k/uL (150-450) 10/28/22 14:34 MPV 7.1 10/28/22 14:34 Neutrophils % 64 % 10/28/22 14:34 Lymphocytes % 28 % 10/28/22 14:34 Monocytes % 6 % 10/28/22 14:34 Eosinophils % 1 % 10/28/22 14:34 Basophils % 0 % 10/28/22 14:34 Neutrophils # 8.6 k/uL (1.3-7.7) H 10/28/22 14:34 Lymphocytes # 3.8 k/uL (1.0-4.8) 10/28/22 14:34 Monocytes # 0.8 k/uL (0-1.0) 10/28/22 14:34 Eosinophils # 0.1 k/uL (0-0.7) 10/28/22 14:34 Basophils # 0.0 k/uL (0-0.2) 10/28/22 14:34 PT 12.8 sec (9.0-12.0) H 10/28/22 14:34 INR 1.3 (<1.2) H 10/28/22 14:34 APTT 25.9 sec (22.0-30.0) 10/28/22 14:34 Sodium 137 mmol/L (137-145) 10/28/22 14:34 Potassium 3.8 mmol/L (3.5-5.1) 10/28/22 14:34 Chloride 103 mmol/L (98-107) 10/28/22 14:34 Carbon Dioxide 18 mmol/L (22-30) L 10/28/22 14:34 Anion Gap 16 mmol/L 10/28/22 14:34 BUN 24 mg/dL (9-20) H 10/28/22 14:34 Creatinine 1.02 mg/dL (0.66-1.25) 10/28/22 14:34 Est GFR (CKD-EPI)AfAm >90 (>60 ml/min/1.73 sqM) 10/28/22 14:34 Est GFR (CKD-EPI)NonAf >90 (>60 ml/min/1.73 sqM) 10/28/22 14:34 Glucose 88 mg/dL (74-99) 10/28/22 14:34 POC Glucose (mg/dL) 95 mg/dL (70-110) 10/28/22 13:58 POC Glu Ice Cream Server ID Leti Brantley 10/28/22 13:[address] Glu mg/dL 105 mg/dL 10/28/22 14:34 Hemoglobin A1c 5.3 % (<=6.0) 10/28/22 14:34 Calcium 9.7 mg/dL (8.4-10.2) 10/28/22 14:34 Total Bilirubin 1.9 mg/dL (0.2-1.3) H 10/28/22 14:34 AST 39 U/L (17-59) 10/28/22 14:34 ALT 35 U/L (4-49) 10/28/22 14:34 Alkaline Phosphatase 75 U/L (38-126) 10/28/22 14:34 Creatine Kinase 308 U/L (55-170) H 10/28/22 15:40 Total Protein 8.7 g/dL (6.3-8.2) H 10/28/22 14:34 Albumin 5.0 g/dL (3.5-5.0) 10/28/22 14:34 Triglycerides 88.60 mg/dL (0.00-149.00) 10/28/22 14:30 Cholesterol 161.00 mg/dL (0.00-200.00) 10/28/22 14:30 LDL Cholesterol, Calc 106.2 mg/dL (0.0-131.0) 10/28/22 14:30 VLDL Cholesterol, Calc 17.72 mg/dL (5.00-40.00) 10/28/22 14:30 HDL Cholesterol 37.10 mg/dL (40.00-60.00) L 10/28/22 14:30 Cholesterol/HDL Ratio 4.34 Ratio 10/28/22 14:30 TSH 0.701 mIU/L (0.465-4.680) 10/28/22 14:30 Urine Color Yellow 10/28/22 18:48 Urine Appearance Clear (Clear) 10/28/22 18:48 Urine pH 6.0 (5.0-8.0) 10/28/22 18:48 Ur Specific [place] 1.036 (1.001-1.035) H 10/28/22 18:48 Urine Protein 1+ (Negative) H 10/28/22 18:48 Urine Glucose (UA) Negative (Negative) 10/28/22 18:48 Urine Ketones 3+ (Negative) H 10/28/22 18:48 Urine Blood Trace (Negative) H 10/28/22 18:48 Urine Nitrite Negative (Negative) 10/28/22 18:48 Urine Bilirubin Negative (Negative) 10/28/22 18:48 Urine Urobilinogen 2.0 mg/dL (<2.0) 10/28/22 18:48 Ur Leukocyte Esterase Negative (Negative) 10/28/22 18:48 Urine RBC 6 /hpf (0-5) H 10/28/22 18:48 Urine WBC 5 /hpf (0-5) 10/28/22 18:48 Amorphous Sediment Rare /hpf (None) H 10/28/22 18:48 Hyaline Casts 9 /lpf (0-2) H 10/28/22 18:48 Urine Mucus Many /hpf (None) H 10/28/22 18:48 Urine Opiates Screen Not Detected (NotDetected) 10/28/22 18:48 Ur Oxycodone Screen Not Detected (NotDetected) 10/28/22 18:48 Urine Methadone Screen Not Detected (NotDetected) 10/28/22 18:48 Ur Propoxyphene Screen Not Detected (NotDetected) 10/28/22 18:48 Ur Barbiturates Screen Not Detected (NotDetected) 10/28/22 18:48 U Tricyclic Antidepress Not Detected (NotDetected) 10/28/22 18:48 Ur Phencyclidine Scrn Not Detected (NotDetected) 10/28/22 18:48 Ur Amphetamines Screen Not Detected (NotDetected) 10/28/22 18:48 U Methamphetamines Scrn Not Detected (NotDetected) 10/28/22 18:48 U Benzodiazepines Scrn Not Detected (NotDetected) 10/28/22 18:48 Urine Cocaine Screen Not Detected (NotDetected) 10/28/22 18:48 U Marijuana (THC) Screen Detected (NotDetected) H 10/28/22 18:48 Serum Alcohol <10 mg/dL 10/28/22 15:40 Coronavirus (PCR) Not Detected (Not Detectd) 10/28/22 22:00 Vital Signs Temp 98.3 F 11/06/22 06:39 Pulse 93 11/06/22 06:39 Resp 16 11/06/22 06:39 BP 116/86 11/06/22 06:39 Pulse Ox 98 11/06/22 06:39 FiO2 Patient Condition at Discharge: Stable Plan - Discharge Summary Discharge Rx Participant: No New Discharge Prescriptions: New Nicotine 14Mg/24Hr Patch [Habitrol] 1 patch TRANSDERM DAILY 14 Days #14 patch amLODIPine [Norvasc] 5 mg PO DAILY 30 Days #30 tab risperiDONE ER inj [Perseris] 120 mg SQ QMONTHLY #1 each traZODone HCL [Desyrel] 100 mg PO HS PRN 30 Days #30 tab PRN Reason: Insomnia Ibuprofen [Motrin] 600 mg PO Q6HR PRN tab PRN Reason: Moderate Pain (Scale 4 To 6) Acetaminophen Tab [Tylenol] 650 mg PO Q4HR PRN tab PRN Reason: Mild Pain (Scale 1 To 3) Discharge Medication List Acetaminophen Tab [Tylenol] 650 mg PO Q4HR PRN tab 11/06/22 [Rx] Ibuprofen [Motrin] 600 mg PO Q6HR PRN tab 11/06/22 [Rx] Nicotine 14Mg/24Hr Patch [Habitrol] 1 patch TRANSDERM DAILY 14 Days #14 patch 11/06/22 [Rx] amLODIPine [Norvasc] 5 mg PO DAILY 30 Days #30 tab 11/06/22 [Rx] risperiDONE ER inj [Perseris] 120 mg SQ QMONTHLY #1 each 11/06/22 [Rx] traZODone HCL [Desyrel] 100 mg PO HS PRN 30 Days #30 tab 11/06/22 [Rx] Follow up Appointment(s)/Referral(s): Linda, Yes Care [Other] - 11/06/22 4:00 pm (intake @ group home upon discharge ) Patient Instructions/Handouts: How to Stop Smoking (DC), Cannabis Abuse (ED), Methamphetamine Abuse (DC), Psychotic Disorder (ED) Activity/Diet/Wound Care/Special Instructions: Avoid the use of street drugs and alcohol. Take all medications as prescribed. When you are in need of refills on your medications, please contact your medical provider and/or outpatient psychiatrist/provider to have this done. Please go to your scheduled outpatient appointment for aftercare treatment. If symptoms return or become worse, call the crisis line at and/or go to the nearest emergency room for evaluation. National Suicide Hotline 636. Discharge Disposition: DC/TRANSFER COURT/LAW
== END 2022-11-06 13:53 | DRG 776 ==
LOC: EC 13:23 → 3MHU 10-29 15:39
PROVIDERS: ADMIT Psychiatry & Neurology Psychiatry; ATTEND Psychiatry & Neurology Psychiatry
DX: F19.159 Other psychoactive substance abuse with psychoactive substance-induced psychotic disorder, unspecified (principal); F23 Brief psychotic disorder; F12.10 Cannabis abuse, uncomplicated; F17.200 Nicotine dependence, unspecified, uncomplicated; G47.00 Insomnia, unspecified; F15.20 Other stimulant dependence, uncomplicated; F41.9 Anxiety disorder, unspecified; R45.1 Restlessness and agitation; Z20.822 Contact with and (suspected) exposure to COVID-19; Z56.0 Unemployment, unspecified; Z71.51 Drug abuse counseling and surveillance of drug abuser
CPT/HCPCS: 36415; 70450; 71045; 80053; 80061; 80306; 80320; 81001; 82550; 83036; 84443; 85025; 85610; 85730; 87635; 93005; 96361; 96372; 96374; 99285

== ENCOUNTER 2023-12-02 18:04 | Inpatient (IN) | payer OTHER ==
--- NOTE | 2023-12-02 18:18 | ED ---
General Adult HPI - General Stated complaint: mental health Time Seen by Provider: 12/02/23 18:06 Source: patient, police, RN notes reviewed Limitations: no limitations - History of Present Illness Initial comments: Patient is a 33-year-old male presenting to the emergency department for mental health evaluation. Patient arrives with security control room officer escort. Patient admits to being off his medications for a couple of days. Patient admits that is difficult to concentrate and to relax. Patient feels paranoid. Patient has flight of ideas. Patient denies suicidal or homicidal thoughts. Patient states he has not been sleeping well. Patient questions if he sees people in his yard. - Related Data Previous Rx's Medication Instructions Recorded Nicotine 14Mg/24Hr Patch [Habitrol] 1 patch TRANSDERM DAILY 14 Days 11/06/22 #14 patch Nicotine 14Mg/24Hr Patch [Habitrol] 1 patch TRANSDERM DAILY patch 12/06/23 QUEtiapine [SEROquel] 50 mg PO HS 30 Days #30 tab 12/06/23 Sertraline [Zoloft] 100 mg PO DAILY 30 Days #30 tab 12/06/23 Allergies Allergy/AdvReac Type Severity Reaction Status Date / Time No Known Allergies Allergy Verified 12/02/23 23:19 Review of Systems ROS Statement: Those systems with pertinent positive or pertinent negative responses have been documented in the HPI. ROS Other: All systems not noted in ROS Statement are negative. Constitutional: Denies: fever Eyes: Denies: eye pain ENT: Denies: ear pain Respiratory: Denies: cough, dyspnea Psychiatric: Reports: visual hallucinations Past Medical History Past Medical History: No Reported History History of Any Multi-Drug Resistant Organisms: None Reported Past Surgical History: No Surgical Hx Reported Past Anesthesia/Blood Transfusion Reactions: No Reported Reaction Past Psychological History: Depression Smoking Status: Current every day smoker Past Alcohol Use History: None Reported Past Drug Use History: None Reported General Exam Limitations: no limitations General appearance: alert, in no apparent distress Head exam: Present: atraumatic Eye exam: Present: normal appearance ENT exam: Present: normal oropharynx Neck exam: Present: normal inspection Respiratory exam: Present: normal lung sounds bilaterally Cardiovascular Exam: Present: regular rate, normal rhythm GI/Abdominal exam: Present: soft. Absent: tenderness Extremities exam: Present: normal inspection Neurological exam: Present: alert. Absent: motor sensory deficit Expanded Focused psych exam: Present: restlessness, flight of ideas, loose associations Skin exam: Present: normal color Course Vital Signs 12/02/23 12/03/23 18:07 00:11 Temperature 98.3 F Pulse Rate 107 H 62 Respiratory 18 16 Rate Blood Pressure 119/78 134/87 O2 Sat by Pulse 96 99 Oximetry Medical Decision Making - Medical Decision Making Was pt. sent in by a medical professional or institution (, PA, TIME BROKER, urgent care, hospital, or custodial...) When possible be specific @ -No Did you speak to anyone other than the patient for history (EMS, parent, family, police, friend...)? What history was obtained from this source @ -No Did you review nursing and triage notes (agree or disagree)? Why? @ -I reviewed and agree with nursing and triage notes Were old charts reviewed (outside hosp., previous admission, EMS record, old EKG, old radiological studies, urgent care reports/EKG's, custodial records)? Report findings @ -Previous psychiatric visit reviewed Differential Diagnosis (chest pain, altered mental status, abdominal pain women, abdominal pain men, vaginal bleeding, weakness, fever, dyspnea, syncope, headache, dizziness, GI bleed, back pain, seizure, CVA, palpatations, mental health, musculoskeletal)? @ -Differential Mental Health Depression, anxiety, bipolar, psychosis, schizophrenia, borderline personality, situational depression, adjustment disorder, behavioral disorder, brain tumor, malingering, substance abuse, encephalopathy, medication reaction, dementia, hypothyroidism, degenerative neurologic disorder, lupus.... This is not meant to be all-inclusive list EKG interpreted by me (3pts min.). @ -As above X-rays interpreted by me (1pt min.). @ -None done CT interpreted by me (1pt min.). @ -None done U/S interpreted by me (1pt. min.). @ -None done What testing was considered but not performed or refused? (CT, X-rays, U/S, labs)? Why? @ -None What meds were considered but not given or refused? Why? @ -None Did you discuss the management of the patient with other professionals (professionals i.e. , PA, TIME BROKER, lab, RT, psych nurse, social service liaison, voice intercept technician, t eacher, fire officer, disease case manager)? Give summary @ -Discussed with psychiatric nurse Was smoking cessation discussed for >3mins.? @ -No Was critical care preformed (if so, how long)? @ -No Were there social determinants of health that impacted care today? How? (Homelessness, low income, unemployed, alcoholism, drug addiction, transportation, low edu. Level, literacy, decrease access to med. care, correction, rehab)? @ -No Was there de-escalation of care discussed even if they declined (Discuss DNR or withdrawal of care, Hospice)? DNR status @ -No What co-morbidities impacted this encounter? (DM, HTN, Smoking, COPD, CAD, Cancer, CVA, ARF, Chemo, Hep., AIDS, mental health diagnosis, sleep apnea, morbid obesity)? @ -None Was patient admitted / discharged? Hospital course, mention meds given and route, prescriptions, significant lab abnormalities, going to OR and other pertinent info. @ -Patient presents with difficulty concentrating and flight of ideas. Patient does have some paranoia - Lab Data Result diagrams: 12/03/23 14:15 12/03/23 14:15 Lab Results 12/02/23 12/02/23 12/02/23 Range/Units 20:15 20:15 22:03 Urine Color Yellow Urine Appearance Clear (Clear) Urine pH 6.0 (5.0-8.0) Ur Specific [place] 1.024 (1.001-1.035) Urine Protein Negative (Negative) Urine Glucose (UA) Negative (Negative) Urine Ketones Negative (Negative) Urine Blood Negative (Negative) Urine Nitrite Negative (Negative) Urine Bilirubin Negative (Negative) Urine Urobilinogen <2.0 (<2.0) mg/dL Ur Leukocyte Esterase Negative (Negative) Urine Opiates Screen Not Detected (NotDetected) Ur Oxycodone Screen Not Detected (NotDetected) Urine Methadone Screen Not Detected (NotDetected) Ur Barbiturates Screen Not Detected (NotDetected) U Tricyclic Antidepress Not Detected (NotDetected) Ur Phencyclidine Scrn Not Detected (NotDetected) Ur Amphetamines Screen Not Detected (NotDetected) U Methamphetamines Scrn Not Detected (NotDetected) U Benzodiazepines Scrn Not Detected (NotDetected) Urine Cocaine Screen Not Detected (NotDetected) U Marijuana (THC) Screen Detected H (NotDetected) SARS-CoV-2 (PCR) Not Detected (Not Detectd) Disposition Clinical Impression: Psychosis Disposition: TRANSFER TO PSYCH HOSP/UNIT Condition: Stable Is patient prescribed a controlled substance at d/c from ED?: No
[2023-12-02 21:35] LABS: Amphetamine Screen,Urine Not Detected (NotDetected); Barbiturate Screen,Urine Not Detected (NotDetected); Benzodiazepines Screen,Urine Not Detected (NotDetected); Cocaine Screen,Urine Not Detected (NotDetected); Methadone Screen, Urine Not Detected (NotDetected); Opiate Screen,Urine Not Detected (NotDetected); Oxycodone Screen, Urine Not Detected (NotDetected); Phencyclidine Screen,Urine Not Detected (NotDetected); Tricyclic Antidepressant,Urine Not Detected (NotDetected); Urn Cannabinoid Scrn Detected (NotDetected)
[2023-12-02] MEDS ORDERED: IBUPROFEN 600 MG TAB PO PRN (23:08)
[2023-12-02] MEDS ORDERED: MAG HYDROX/AL HYDROX/SIMETH 355 ML BOTTLE PO PRN (23:08)
[2023-12-02] MEDS ORDERED: MAGNESIUM HYDROXIDE 2,400 MG/30 ML CUP PO PRN (23:08)
[2023-12-02] MEDS ORDERED: OLANZapine 10 MG VIAL IM PRN (23:08)
[2023-12-03] MEDS: LORazepam 1 MG TAB PO PRN (00:51)
[2023-12-03] MEDS: OLANZapine 5 MG TAB PO PRN (00:51)
[2023-12-03] MEDS ORDERED: OLANZapine 10 MG TAB PO PRN (01:28)
--- NOTE | 2023-12-03 01:29 | P.PN ---
Progress Note - Text Progress Note Date: 12/03/23 notified of new consult , RN reported that patient is manic and cant be evaluated at this time
[2023-12-03] MEDS: OLANZapine 10 MG VIAL IM PRN (01:48)
[2023-12-03] MEDS: LORazepam 2 MG/ML INJ IM PRN (01:48)
[2023-12-03 02:57] LABS: Appearance,Urine Clear (Clear); Bilirubin,Urine Negative (Negative); Blood,Urine Negative (Negative); Color,Urine Yellow; Glucose,Urine (UA) Negative (Negative); Ketones,Urine Negative (Negative); Leukocyte Esterase,Urine Negative (Negative); Nitrite,Urine Negative (Negative); Protein,Urine Negative (Negative); Specific Gravity,Urine 1.024 (1.001-1.035); Urobilinogen,Urine <2.0 mg/dL (<2.0)
[2023-12-03] MEDS ORDERED: HALOPERIDOL LACTATE 5 MG/ML 1 ML VIAL IM PRN ×2 (12:31→12:32)
[2023-12-03] MEDS ORDERED: haloperidoL 5 MG TAB PO PRN (12:32)
[2023-12-03] MEDS: NICOTINE 14MG/24HR PATCH TRANSDERM SCH (13:01)
--- NOTE | 2023-12-03 13:09 | P.HP ---
Psychiatric H&P - . H&P Date: 12/03/23 History & Physical: Allergies Allergy/AdvReac Type Severity Reaction Status Date / Time No Known Allergies Allergy Verified 12/02/23 23:19 Vital Signs Temp 98.0 F 12/03/23 02:11 Pulse 70 12/03/23 02:11 Resp 18 12/03/23 02:11 BP 139/88 12/03/23 02:11 Pulse Ox 98 12/03/23 02:11 FiO2 Intake & Output 12/02/23 12/03/23 12/03/23 18:59 06:59 18:59 Weight 127.006 kg 114.929 kg Laboratory Last Values Urine Color Yellow 12/02/23 20:15 Urine Appearance Clear (Clear) 12/02/23 20:15 Urine pH 6.0 (5.0-8.0) 12/02/23 20:15 Ur Specific [place] 1.024 (1.001-1.035) 12/02/23 20:15 Urine Protein Negative (Negative) 12/02/23 20:15 Urine Glucose (UA) Negative (Negative) 12/02/23 20:15 Urine Ketones Negative (Negative) 12/02/23 20:15 Urine Blood Negative (Negative) 12/02/23 20:15 Urine Nitrite Negative (Negative) 12/02/23 20:15 Urine Bilirubin Negative (Negative) 12/02/23 20:15 Urine Urobilinogen <2.0 mg/dL (<2.0) 12/02/23 20:15 Ur Leukocyte Esterase Negative (Negative) 12/02/23 20:15 Urine Opiates Screen Not Detected (NotDetected) 12/02/23 20:15 Ur Oxycodone Screen Not Detected (NotDetected) 12/02/23 20:15 Urine Methadone Screen Not Detected (NotDetected) 12/02/23 20:15 Ur Barbiturates Screen Not Detected (NotDetected) 12/02/23 20:15 U Tricyclic Antidepress Not Detected (NotDetected) 12/02/23 20:15 Ur Phencyclidine Scrn Not Detected (NotDetected) 12/02/23 20:15 Ur Amphetamines Screen Not Detected (NotDetected) 12/02/23 20:15 U Methamphetamines Scrn Not Detected (NotDetected) 12/02/23 20:15 U Benzodiazepines Scrn Not Detected (NotDetected) 12/02/23 20:15 Urine Cocaine Screen Not Detected (NotDetected) 12/02/23 20:15 U Marijuana (THC) Screen Detected (NotDetected) H 12/02/23 20:15 SARS-CoV-2 (PCR) Not Detected (Not Detectd) 12/02/23 22:03 12/03/23 12:37 IDENTIFYING DATA: Patient is a 33-year-old male, currently living with grandmother CHIEF COMPLAINT: "Psychotic break" HPI: Patient presented to the hospital via police escort on 12/01 for mental health evaluation. Per ED note, patient reports being off his medications for a couple of days. Patient admits that it is difficult to concentrate and to relax. Patient feels paranoid. Patient has flight of ideas. Patient denies suicidal or homicidal thoughts. Patient states he has not been sleeping well. Patient questions if he sees people in his yard." Per petition written by police officer booking, "delusional, took drugs and was hallucinating, saying he was in the simulation. Believed he he owns firearms for violence. Very manic. Told dispatch she wanted to kill his mother." Per clinical cert, "patient reports homicidal behavior. He reports to thoughts of killing his mom and has access to guns." Patient reportedly called EMS because he was not feeling like himself. Patient reportedly verbalized he has not slept in over 3 days and has been unable to stop his mind. Patient reportedly verbalized occasional visual hallucinations however denied any auditory hallucinations. Patient reportedly states he has been nonadherent with his medications. Upon transfer to the unit from the ED, patient displayed erratic behavior and was yelling, screaming, and intrusive with other peers. Patient also made hypersexual comments and ended up receiving several as needed medications due to being unable to be redirected. Patient now has one-to-one sitter for safety. Attempted to interview patient however he was very somnolent but was able to open his eyes when spoken to. PAST PSYCHIATRIC HISTORY: Patient has a history of methamphetamine use, psychosis unspecified. Reportedly has been nonadherent with medications however he was discharged here on Risperdal Perseris subcu 120 mg IM, however this was last given on 11/2022 and trazodone 100 mg PRN HS. Patient follows up with [facility] and he is currently only prescribed Paxil 40 mg daily. Patient has 1 prior inpatient hospitalization in 2022. Patient denies any history of suicide attempts in the past. PMH: as per ER note ALLERGIES: as per EMR SUBSTANCE USE HISTORY: Patient previously used methamphetamine however now reports using cannabis daily, alcohol socially FAMILY PSYCHIATRIC/SUBSTANCE USE HISTORY: Denies SOCIAL HISTORY: Patient was born and raised in [place]. Currently living at his grandmother's house in [place] and is single. He denies any current legal issues. MENTAL STATUS EXAM: General Appearance: Patient appears to be stated age is somnolent. Patient appears to have poor hygiene and grooming. Behavior: Patient is sleeping in bed, difficult to awaken Mood/Affect: unable to assess Suicidality/Homicidality: Unable to assess however patient reportedly made homicidal comments towards his mother prior to arrival but vehemently denied this during assessment in the ED Perceptions: Patient reportedly endorsed visual hallucinations daily Though content/process: Unable to assess given somnolence Judgment and insight: Poor STRENGTHS/WEAKNESSES: strength is that patient is resilient. Weakness is that patient has poor judgment and is impulsive INTELLECT: Average IMPRESSIONS: Psychosis, unspecified Rule out substance induced psychotic disorder versus bipolar 1 disorder Methamphetamine abuse Cannabis use disorder Nicotine dependence PLAN: -Patient is admitted under involuntary status to MHU for stabilization of psych iatric symptoms and safety. Patient has not signed adult voluntary form and medication consent and is placed in patient's chart. A second certification was completed and along with petition will be filed for court. -Medications : Start Invega 3 mg at bedtime for psychosis -Ativan and Haldol PRN for agitation/aggression -Internal Medicine consult to perform medical evaluation and physical. -NRT -nicotine patch -SW on board for discharge planning. Encourage patient to participate in groups to work on coping skills. Will await deferral and court date.
[2023-12-03 14:41] LABS: Basophils % (A) 1 %; Eosinophils # (A) 0.1 k/uL (0-0.7); Eosinophils % (A) 1 %; HCT 39.6 % (39.0-53.0); HGB 13.4 gm/dL (13.0-17.5); Lymphocytes # (A) 2.5 k/uL (1.0-4.8); Lymphocytes % (A) 29 %; MCH 30.9 pg (25.0-35.0); MCHC 33.9 g/dL (31.0-37.0); MCV 91.2 fL (80.0-100.0); Monocytes # (A) 0.6 k/uL (0-1.0); Monocytes % (A) 6 %; Neutrophils # (A) 5.4 k/uL (1.3-7.7); Neutrophils % (A) 61 %; Platelet Count 292 k/uL (150-450); RBC 4.34 m/uL (4.30-5.90); RDW 12.9 % (11.5-15.5); WBC 8.9 k/uL (3.8-10.6)
[2023-12-03 14:56] LABS: ALT 27 U/L (4-49); AST 26 U/L (17-59); African American GFR (CKD) >90 (>60 ml/min/1.73 sqM); Albumin 4.2 g/dL (3.5-5.0); Alkaline Phosphatase 72 U/L (38-126); Anion Gap 5 mmol/L; Bilirubin, Delta 0.1 mg/dL (0.0-0.2); Bilirubin,Unconjugated 0.7 mg/dL (0.0-1.1); Blood Urea Nitrogen 13 mg/dL (9-20); Calcium 8.9 mg/dL (8.4-10.2); Carbon Dioxide 23 mmol/L (22-30); Chloride 113 mmol/L (98-107); Glucose 86 mg/dL (74-99); Non-African American GFR(CKD) >90 (>60 ml/min/1.73 sqM); Potassium 4.5 mmol/L (3.5-5.1); Sodium 141 mmol/L (137-145); Total Bilirubin 0.8 mg/dL (0.2-1.3); Total Protein 6.9 g/dL (6.3-8.2)
[2023-12-03 19:02] LABS: LDL Cholesterol,Calculated 124.9 mg/dL (0.0-131.0)
[2023-12-03] MEDS: PALIPERIDONE 3 MG TAB.ER.24 PO SCH (21:20)
--- NOTE | 2023-12-04 09:59 | P.PN ---
Progress Note - Text Progress Note Date: 12/04/23 Interval History: Patient was seen laying in bed and was directable and agreeable to speak with process description writer in his room. He explains the events that led to this hospitalization starting with trouble sleeping for a few days. He mentions trying melatonin however this was not effective so he eventually switched to cannabis and ended up doing close to 1 g at 1 time. He states playing video games and was having difficulty distinguishing reality from fake. He thought someone was messing with his phone. He ended up contacting the police and states he told a bunch of lies just that they would help him. He states in the ambulance he continued to experience visual hallucinations described as seeing a vampire and paranoia. He mentions stopping his Paxil a few days prior to this episode and he did experience discontinuation symptoms from this. He states feeling better now and is back to his baseline and wishes to go home. As patient is here involuntarily, this process was explained to patient and he was agreeable with treatment today. Will trial the sitter off today. Patient was strongly encouraged to discontinue his cannabis use given the events that led to this hospitalization. States previously having a similar episode close to 1 year ago when he was admitted here. At this time patient denies any suicidal or homicidal ideations, intent or plan. Patient denies any auditory, visual hallucinations and denies any paranoia or delusions. Patient denies any side effects from the medications and has been compliant with meds. Mental Status Exam: General Appearance: Patient appears to be stated age is alert, directable, and cooperative. Patient has short dark hair with poor grooming and hygiene Behavior: Patient is calmly laying without any agitated behavior. Speech: Patient's speech is fluent and nonpressured. Mood/Affect: Mood is improving mildly, affect is congruent and constricted. Suicidality/Homicidality: Patient denies having any suicidal or homicidal ideation intent or plan. Perceptions: Patient denies any visual hallucinations and denies any auditory hallucinations Though content/process: There is no evidence of any delusional thought content and thought process is linear and goal-directed. 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 Patient has not signed adult voluntary form and medication consent and was placed in patient's chart. -Medications: Stop Invega 3 mg at bedtime and start Seroquel 50 mg at bedtime for psychosis/sleep and start Zoloft 50 mg daily for depression -When necessary Ativan and Haldol for agitation/aggression. -Labs: Reviewed, EKG ordered and pending to be completed -NRT -nicotine patch -SW on board for discharge planning. Encouraged the patient to participate in milieu. Currently awaiting deferral with employee benefits attorney and court date.
[2023-12-04] MEDS: SERTRALINE 50 MG TAB PO SCH (12:14)
[2023-12-04] MEDS: QUEtiapine 50 MG TAB PO SCH (20:34)
[2023-12-05] MEDS: ACETAMINOPHEN TAB 325 MG TAB PO PRN (02:17)
--- NOTE | 2023-12-05 03:01 | P.MDCNMH ---
History of Present Illness H&P Date: 12/04/23 Chief Complaint: Medical evaluation 33-year-old male with no significant past medical history coming in for mental health evaluation due to paranoid behavior Patient denies any fevers chills coughing shortness of breath chest pain nausea vomiting abdominal pain changes in bowel or urinary habits He reports some nasal congestion no runny nose no sore throat Patient admits to tobacco smoking marijuana denies any heavy alcohol review of systems Pertinent positives as noted in HPI. All other systems were reviewed and are negative on exam Constitutional: No acute distress, conversant, pleasant Eyes: Anicteric sclerae, moist conjunctiva, Pupils equal round reactive to light ENMT: Lungs: Clear to auscultation Clear to percussion Normal respiratory effort, no accessory muscle use Cardiovascular: Heart regular in rate and rhythm, No murmurs, gallops, or rubs No peripheral edema Abdominal: Soft Nontender, no guarding, rebound or rigidity Abdomen moving with respiration Normoactive bowel sounds Extremities: No digital cyanosis No clubbing Pedal pulses intact and symmetrical Radial pulses intact and symmetrical No calf tenderness Psychiatric: Alert and oriented to person, place and time Neuro Muscles Strength 5/5 in all 4 extremities Sensation to light touch grossly present throughout Cranial nerves II-XII grossly intact Past Medical History Past Medical History: No Reported History History of Any Multi-Drug Resistant Organisms: None Reported Past Surgical History: No Surgical Hx Reported Past Anesthesia/Blood Transfusion Reactions: No Reported Reaction Past Psychological History: Depression Smoking Status: Current every day smoker Past Alcohol Use History: None Reported Past Drug Use History: None Reported Medications and Allergies Home Medications Medication Instructions Recorded Confirmed Type Acetaminophen Tab [Tylenol] 650 mg PO Q4HR PRN tab 11/06/22 12/02/23 Rx Ibuprofen [Motrin] 600 mg PO Q6HR PRN tab 11/06/22 12/02/23 Rx Nicotine 14Mg/24Hr Patch [Habitrol] 1 patch TRANSDERM DAILY 14 Days 11/06/22 12/02/23 Rx #14 patch amLODIPine [Norvasc] 5 mg PO DAILY 30 Days #30 tab 11/06/22 12/02/23 Rx risperiDONE ER inj [Perseris] 120 mg SQ QMONTHLY #1 each 11/06/22 12/02/23 Rx traZODone HCL [Desyrel] 100 mg PO HS PRN 30 Days #30 tab 11/06/22 12/02/23 Rx Allergies Allergy/AdvReac Type Severity Reaction Status Date / Time No Known Allergies Allergy Verified 12/02/23 23:19 Physical Exam Vitals: Vital Signs Temp Pulse Resp BP 12/04/23 12:23 97.8 F 94 18 126/84 Cranial Nerve Examination - Cranial Nerves Cranial Nerve II- Optic: Intact Cranial Nerve III- Oculomotor: Intact Cranial Nerve IV- Trochlear: Intact Cranial Nerve V- Trigeminal: Intact Cranial Nerve - Abducens: Intact Cranial Nerve VII- Facial: Intact Cranial Nerve VIII- Auditory: Intact Cranial Nerve IX- Glossopharyngeal: Intact Cranial Nerve X- Vagus: Intact Cranial Nerve XI- Accessory: Intact Cranial Nerve XII- Hypoglossal: Intact Results CBC & Chem 7: 12/03/23 14:15 12/03/23 14:15 Assessment and Plan Assessment: Obesity Hyperlipidemia Patient advised about lifestyle modification and weight loss LDL cholesterol 124, with goal of less than 100 HDL of 30 with goal more than 40 Paranoid ideation management per psych Thank you for this consultation patient stable from medical standpoint at this time
[2023-12-05 07:09] VITALS: RESP 16
--- NOTE | 2023-12-05 09:42 | P.PN ---
Progress Note - Text Progress Note Date: 12/05/23 Interval History: Patient was seen wandering the hallways and was directable and agreeable to sp ricardo with conventional underwriter in the office. He states feeling "better" today and that he feels more like himself. He feels like the high quantity of THC was a contributing factor to his actions before and he expressed remorse regarding his past actions. He reports sleeping most of the day but was still able to sleep close to 8 hours overnight. He reports high anxiety but was able to identify several coping skills including exercising and being outside. He reports nasal congestion and phlegm however denied any sore throat, fever or chills. He states Tylenol was somewhat helpful. He states speaking to his mom and that he would likely return home with her tomorrow. At this time patient denies any suicidal or homicidal ideations, intent or plan. Patient denies any auditory, visual hallucinations and denies any paranoia or delusions. Patient denies any side effects from the medications and has been compliant with meds. Mental Status Exam: General Appearance: Patient appears to be stated age is alert, directable, and cooperative. Has short dark hair and wears glasses Behavior: Patient is calmly seated without any agitated behavior. Speech: Patient's speech is fluent and nonpressured. Mood/Affect: Mood is improving mildly, affect is congruent and full range. Suicidality/Homicidality: Patient denies having any suicidal or homicidal ideation intent or plan. Perceptions: Patient denies any visual hallucinations and denies any auditory hallucinations Though content/process: There is no evidence of any delusional thought content and thought process is linear and goal-directed. 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 Patient has signed adult voluntary form and medication consent and was placed in patient's chart. -Medications: Increase Zoloft to 50 mg daily today for depression/anxiety and continue Seroquel 50 mg at bedtime for sleep/psychosis -When necessary Ativan and Haldol for agitation/aggression. -Labs: EKG revealed normal sinus rhythm with sinus arrhythmia, QTc 432 -NRT -nicotine patch -SW on board for discharge planning. Encouraged the patient to participate in milieu. Patient was converted to voluntary yesterday given his willingness to accept treatment. Discharge planned for tomorrow, safety plan already done confirming no firearms in the home
[2023-12-05] MEDS: SERTRALINE 50 MG TAB PO STA (10:26)
[2023-12-05] MEDS: FLUTICASONE NASAL 50MCG/SPRAY 16GM BTL EA NOSTRIL PRN (11:05)
[2023-12-05 23:18] LABS: Glucose,Whole Blood 115 mg/dL (70-110)
[2023-12-06] MEDS: MELATONIN 5 MG TABLET PO SCH (00:50)
[2023-12-06 07:06] VITALS: BP 124/74; PULSE 65; TEMP 97.5
[2023-12-06] MEDS: SERTRALINE 100 MG TAB PO SCH (08:39)
--- NOTE | 2023-12-06 11:46 | P.DS ---
Providers Date of admission: 12/02/23 23:07 Expected date of discharge: 12/06/23 Attending physician: Yvonne Griffith MD Consults: 12/02/23 23:08 Consult Physician Routine Consulting Provider: Stanley Brannon Consult Reason/Comments: History and Physical, New Admission Do you want consulting provider notified?: Yes Primary care physician: Stated None - Discharge Diagnosis(es) (1) Unspecified psychosis Current Visit: Yes Status: Acute Priority: High (2) Major depressive disorder, recurrent episode, moderate Current Visit: Yes Status: Acute Priority: High (3) Methamphetamine abuse in remission Current Visit: No Status: Acute Priority: Low (4) Cannabis use disorder Current Visit: Yes Status: Acute Priority: High (5) Nicotine dependence Current Visit: Yes Status: Acute Priority: Low Hospital Course: Admission HPI: Admission note was completed by conventional mortgage underwriter "Patient presented to the hospital via police escort on 12/01 for mental health evaluation. Per ED note, patient reports being off his medications for a couple of days. Patient admits that it is difficult to concentrate and to relax. Patient feels paranoid. Patient has flight of ideas. Patient denies suicidal or homicidal thoughts. Patient states he has not been sleeping well. Patient questions if he sees people in his yard." Per petition written by police detective, "delusional, took drugs and was hallucinating, saying he was in the simulation. Believed he he owns firearms for violence. Very manic. Told dispatch she wanted to kill his mother." Per clinical cert, "patient reports homicidal behavior. He reports to thoughts of killing his mom and has access to guns." Patient reportedly called EMS because he was not feeling like himself. Patient reportedly verbalized he has not slept in over 3 days and has been unable to stop his mind. Patient reportedly verbalized occasional visual hallucinations however denied any auditory hallucinations. Patient reportedly states he has been nonadherent with his medications. Upon transfer to the unit from the ED, patient displayed erratic behavior and was yelling, screaming, and intrusive with other peers. Patient also made hypersexual comments and ended up receiving several as needed medications due to being unable to be redirected. Patient now has one-to-one sitter for safety. Attempted to interview patient however he was very somnolent but was able to open his eyes when spoken to." Hospital course: Upon admission to the unit patient was displaying erratic behavior and was hypersexual, requiring several as needed medications for his behaviors. He originally was admitted involuntarily on a petition and certificate and a second certificate was completed and faxed to the courts. However patient psychosis cleared dramatically and decision was made to convert patient voluntary given his willingness to accept help and treatment. Patient's psychosis was likely related to heavy cannabis use as patient reported doing close to 1 g at that time. Patient got along well with other patients on the unit and followed unit protocol. Patient was compliant with the medications and denied any side effects throughout hospital course. Patient was started on Invega 3 mg however given his quick resolution of symptoms this was discontinued and he was started on Zoloft which was increased to 100 mg daily and Seroquel 50 mg at bedtime. Patient spoke of his stressors and engaged in therapy both group and individual. Patient was also seen by medical team for history and physical exam. Throughout the course of the hospitalization patient gradually improved with regards to mood, anxiety, sleep and returned back to their baseline level of functioning became more future oriented with improved insight and judgment. On the day of discharge patient denied any suicidal or homicidal ideations intent or plan denied any auditory or visual hallucinations. The patient denied any access to guns or weapons. Patient denied any paranoia and did not endorse any delusions. Patient does not have a significant history of substance abuse and was counseled on abstaining from all substances including alcohol and marijuana. Patient was also counseled on the medications and need for regular compliance and was encouraged to follow-up with their outpatient appointment for mental health and also for primary care. Prior to discharge a family meeting will be arranged by medical social worker to answer any questions and ensure safety upon discharge incuding making sure that guns/weapons are either removed from the home or locked away. Mental status exam: General Appearance: Patient appears to be stated age is alert, pleasant, and cooperative. Patient is in no acute distress and has improved hygiene and grooming Behavior: Patient is calmly seated without any agitated behavior. Speech: Patient's speech is fluent and nonpressured. Mood/Affect: Patient reports their mood is "good", affect is congruent and euthymic. Suicidality/Homicidality: Patient denies having any suicidal or homicidal ideation intent or plan. Perceptions: Patient denies any auditory or visual hallucinations. Though content/process: There is no evidence of any delusional thought content and thought process is linear and goal-directed. More future oriented Memory and concentration: AOX3, grossly intact for the purposes of this session. Can spell "WORLD" backwards correctly. 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 -Continue medications: Zoloft 100 mg daily for depression/anxiety and Seroquel 50 mg at bedtime for sleep/psychosis -Patient was counseled on the need for medication compliance and appropriate follow-up at mental health and also primary care for medical issues. Patient verbalized understanding and agreed. -Social work to help coordinate patients discharge today arrange for and conduct family meeting to ensure safety upon discharge and answer any questions/jo rns. also to ensure safe home environment that guns/weapons are either removed from the home or locked away. Social work also to arrange for patients follow up appointments with [facility] for psychiatric care along with follow up with primary care provider. -Patient counseled on abstaining from recreational drugs and marijuana and alcohol. Was informed/educated on the adverse effects on their physical and mental health. Patient verbally agreed and understood. -Patient was instructed to return to the hospital or seek immediate medical care if their psychiatric or medical symptoms do worsen or reoccur. Abnormal Labs 12/02/23 12/03/23 12/05/23 20:15 14:15 23:16 Chloride 113 H POC Glucose (mg/dL) 115 H HDL Cholesterol 30.70 L U Marijuana (THC) Screen Detected H Vital Signs Temp 97.5 F L 12/06/23 07:00 Pulse 65 12/06/23 07:00 Resp 16 12/06/23 07:00 BP 124/74 12/06/23 07:00 Pulse Ox 98 12/06/23 07:00 FiO2 Allergies Allergy/AdvReac Type Severity Reaction Status Date / Time No Known Allergies Allergy Verified 12/02/23 23:19 Patient Condition at Discharge: Stable Plan - Discharge Summary Discharge Rx Participant: No New Discharge Prescriptions: New Nicotine 14Mg/24Hr Patch [Habitrol] 1 patch TRANSDERM DAILY patch QUEtiapine [SEROquel] 50 mg PO HS 30 Days #30 tab Sertraline [Zoloft] 100 mg PO DAILY 30 Days #30 tab Continue Nicotine 14Mg/24Hr Patch [Habitrol] 1 patch TRANSDERM DAILY 14 Days #14 patch Discontinued amLODIPine [Norvasc] 5 mg PO DAILY 30 Days #30 tab risperiDONE ER inj [Perseris] 120 mg SQ QMONTHLY #1 each traZODone HCL [Desyrel] 100 mg PO HS PRN 30 Days #30 tab PRN Reason: Insomnia Ibuprofen [Motrin] 600 mg PO Q6HR PRN tab PRN Reason: Moderate Pain (Scale 4 To 6) Acetaminophen Tab [Tylenol] 650 mg PO Q4HR PRN tab PRN Reason: Mild Pain (Scale 1 To 3) Discharge Medication List Nicotine 14Mg/24Hr Patch [Habitrol] 1 patch TRANSDERM DAILY 14 Days #14 patch 11/06/22 [Rx] Nicotine 14Mg/24Hr Patch [Habitrol] 1 patch TRANSDERM DAILY patch 12/06/23 [Rx] QUEtiapine [SEROquel] 50 mg PO HS 30 Days #30 tab 12/06/23 [Rx] Sertraline [Zoloft] 100 mg PO DAILY 30 Days #30 tab 12/06/23 [Rx] Follow up Appointment(s)/Referral(s): [facility] [Outside] - 12/09/23 2:30 pm (12/09/2023 2:30PM - 3:30PM JENNA GOOD 12/10/2023 4:30PM - 5:30PM BRIA COON 12/12/2023 3:30PM - 4:30PM RUBEN CANADA 12/17/2023 2:00PM - 3:00PM RUBEN CANADA 12/20/2023 12:30PM - 1:30PM PRICILLA CURTIS ) [facility] [NON-STAFF] - 1 Week Patient Instructions/Handouts: How to Stop Smoking (DC), Depression (DC), Brief Psychotic Disorder (DC) Activity/Diet/Wound Care/Special Instructions: [facility] Discharge Info Avoid the use of street drugs and alcohol. Take all medications as prescribed. When you are in need of refills on your medications, please contact your outpatient medical provider and/or outpatient psychiatrist. Please go to your scheduled outpatient appointments for aftercare treatment. If symptoms return or become worse, call the crisis line at or and/or visit the nearest emergency room for assistance. [place] [facility] Lif[facility] - call or text 988. Discharge Disposition: HOME SELF-CARE
== END 2023-12-06 12:04 | disposition home or self-care (01) | DRG 751 ==
LOC: EC 18:04 → 3MHU 23:07
PROVIDERS: ADMIT Psychiatry & Neurology Psychiatry; ATTEND Psychiatry & Neurology Psychiatry
DX: F33.1 Major depressive disorder, recurrent, moderate (principal); F60.0 Paranoid personality disorder; R45.850 Homicidal ideations; F17.200 Nicotine dependence, unspecified, uncomplicated; F12.10 Cannabis abuse, uncomplicated; E78.5 Hyperlipidemia, unspecified; T43.96XA Underdosing of unspecified psychotropic drug, initial encounter; F41.9 Anxiety disorder, unspecified; F15.11 Other stimulant abuse, in remission; E66.9 Obesity, unspecified; Z68.34 Body mass index [BMI] 34.0-34.9, adult; Z71.51 Drug abuse counseling and surveillance of drug abuser; Z71.3 Dietary counseling and surveillance; Z79.899 Other long term (current) drug therapy; Z91.128 Patient's intentional underdosing of medication regimen for other reason
CPT/HCPCS: 80053; 80061; 80306; 81003; 82075; 82248; 83036; 84443; 85025; 87635; 93005; 99285

== ENCOUNTER 2024-01-25 17:10 | Emergency (ER) | payer MEDICAID, OTHER ==
[2024-01-25 17:18] VITALS: TEMP 97.9
--- NOTE | 2024-01-25 17:58 | ED ---
Back Pain HPI - General Chief Complaint: Back Pain/Injury Stated Complaint: Right flank pain Time Seen by Provider: 01/25/24 17:56 Source: patient, RN notes reviewed Limitations: no limitations - History of Present Illness Initial Comments: 33-year-old male presenting to the ER chief complaint of right rib pain. States symptoms began 3 weeks ago when he had a cough, however pain worsened today when he was getting into the car. Pain is worse with deep inspiration and movement. Denies chest pain. History of hypertension, no other health conditions. Denies falls or trauma. - Related Data Previous Rx's Medication Instructions Recorded Nicotine 14Mg/24Hr Patch [Habitrol] 1 patch TRANSDERM DAILY 14 Days 11/06/22 #14 patch Nicotine 14Mg/24Hr Patch [Habitrol] 1 patch TRANSDERM DAILY patch 12/06/23 QUEtiapine [SEROquel] 50 mg PO HS 30 Days #30 tab 12/06/23 Sertraline [Zoloft] 100 mg PO DAILY 30 Days #30 tab 12/06/23 Cyclobenzaprine [Flexeril] 10 mg PO TID PRN #15 tab 01/25/24 Lidocaine 5% Patch [Lidoderm 5% 1 patch TOPICAL DAILY 7 Days #7 01/25/24 Patch] patch Naproxen [Naprosyn] 500 mg PO Q12H PRN #30 tab 01/25/24 Allergies Allergy/AdvReac Type Severity Reaction Status Date / Time No Known Allergies Allergy Verified 01/25/24 17:13 Review of Systems ROS Statement: Those systems with pertinent positive or pertinent negative responses have been documented in the HPI. ROS Other: All systems not noted in ROS Statement are negative. Past Medical History Past Medical History: Hypertension History of Any Multi-Drug Resistant Organisms: None Reported Past Surgical History: No Surgical Hx Reported Past Anesthesia/Blood Transfusion Reactions: No Reported Reaction Past Psychological History: Depression Smoking Status: Current every day smoker Past Alcohol Use History: Rare Past Drug Use History: Marijuana General Exam Limitations: no limitations General appearance: alert, in no apparent distress Head exam: Present: atraumatic, normocephalic, normal inspection Respiratory exam: Present: normal lung sounds bilaterally, chest wall tenderness (Right lateral rib tenderness to palpation, no overlying skin changes). Absent: respiratory distress, wheezes, rales, rhonchi, stridor Cardiovascular Exam: Present: regular rate, normal rhythm, normal heart sounds. Absent: systolic murmur, diastolic murmur, rubs, gallop, clicks GI/Abdominal exam: Present: soft, normal bowel sounds. Absent: distended, tenderness, guarding, rebound, rigid Neurological exam: Present: alert, oriented X3 Psychiatric exam: Present: normal affect, normal mood Skin exam: Present: warm, dry, intact, normal color. Absent: rash Course Vital Signs 01/25/24 01/25/24 01/25/24 17:13 17:56 19:22 Temperature 97.9 F 97.9 F Pulse Rate 93 76 62 Respiratory 26 H 20 Rate Blood Pressure 154/103 153/112 144/90 O2 Sat by Pulse 97 99 Oximetry Medical Decision Making - Medical Decision Making Was pt. sent in by a medical professional or institution ([facility], CAN C[facility]TER, urgent care, hospital, or senior care...) When possible be specific @ -No Did you speak to anyone other than the patient for history (EMS, parent, family, police, friend...)? What history was obtained from this source @ -No Did you review nursing and triage notes (agree or disagree)? Why? @ -I reviewed and agree with nursing and triage notes Were old charts reviewed (outside hosp., previous admission, EMS record, old EKG, old radiological studies, urgent care reports/EKG's, senior care records)? Report findings @ -No old charts were reviewed Differential Diagnosis (chest pain, altered mental status, abdominal pain women, abdominal pain men, vaginal bleeding, weakness, fever, dyspnea, syncope, headache, dizziness, GI bleed, back pain, seizure, CVA, palpatations, mental health, musculoskeletal)? @ -Differential Musculoskeletal Muscular strain, contusion, ligament sprain, fracture, arthritis, septic arthritis, bursitis, cellulitis, muscle spasm, nerve compression, DVT, arterial occlusion, herpes zoster, electrolyte abnormality, tumor.... This is not meant to be in all inclusive list EKG interpreted by me (3pts min.). @ -As above X-rays interpreted by me (1pt min.). @ -Right rib x-ray with PA chest reveals no acute process CT interpreted by me (1pt min.). @ -None done U/S interpreted by me (1pt. min.). @ -None done What testing was considered but not performed or refused? (CT, X-rays, U/S, labs)? Why? @ -None What meds were considered but not given or refused? Why? @ -None Did you discuss the management of the patient with other professionals (professionals i.e. , PA, CAN CUTTER, lab, RT, psych nurse, secondary social studies teacher, manager proposal, teacher, officer captain, renal case manager)? Give summary @ -No Was smoking cessation discussed for >3mins.? @ -No Was critical care preformed (if so, how long)? @ -No Were there social determinants of health that impacted care today? How? (Homelessness, low income, unemployed, alcoholism, drug addiction, transportation, low edu. Level, literacy, decrease access to med. care, assisted, rehab)? @ -No Was there de-escalation of care discussed even if they declined (Discuss DNR or withdrawal of care, Hospice)? DNR status @ -No What co-morbidities impacted this encounter? (DM, HTN, Smoking, COPD, CAD, Cancer, CVA, ARF, Chemo, Hep., AIDS, mental health diagnosis, sleep apnea, morbid obesity)? @ -None Was patient admitted / discharged? Hospital course, mention meds given and route, prescriptions, significant lab abnormalities, going to OR and other pertinent info. @ -Discharge. This is a 33-year-old male presenting with right rib pain. Pain initially started 3 weeks ago but worsened today. Denies injury or trauma. Patient is mildly hypertensive however states he ran out of his hypertensive medication a couple days ago, does not remember with the medication is called. There is tenderness to palpation over right lateral ribs. Patient was provided with analgesics. EKG reveals normal sinus rhythm with sinus arrhythmia. Right rib x-ray with PA chest reveals no acute process. Discussed results with patient. Upon reevaluation, reports improvement of symptoms. Discussed diagnosis of right rib strain. Appropriate return precautions and follow-up care discussed. Case discussed with my ED attending Dr. Monahan. Undiagnosed new problem with uncertain prognosis? @ -No Drug Therapy requiring intensive monitoring for toxicity (Heparin, Nitro, Insulin, Cardizem)? @ -No Were any procedures done? @ -No Diagnosis/symptom? @ -Right rib strain Acute, or Chronic, or Acute on Chronic? @ -Acute Uncomplicated (without systemic symptoms) or Complicated (systemic symptoms)? @ -Uncomplicated Side effects of treatment? @ -No Exacerbation, Progression, or Severe Exacerbation? @ -No Poses a threat to life or bodily function? How? (Chest pain, [place], LA, pneumonia, PE, COPD, DKA, ARF, appy, cholecystitis, CVA, Diverticulitis, Homicidal, Suicidal, threat to staff... and all critical care pts) @ -No - EKG Data -: EKG Interpreted by Me EKG Comments: EKG reveals sinus bradycardia with sinus arrhythmia. Ventricular rate 52 bpm, DE interval 170, QRS duration 114, QT/QTc 400/379 Disposition Clinical Impression: Rib pain on right side Disposition: HOME SELF-CARE Condition: Stable Instructions (If sedation given, give patient instructions): Muscle Strain (ED) Additional Instructions: Take Naprosyn, Flexeril, and lidocaine patches as needed for pain. Please return to the Emergency Department if symptoms worsen or any other concerns. Prescriptions: Cyclobenzaprine [Flexeril] 10 mg PO TID PRN #15 tab PRN Reason: Muscle Spasm Lidocaine 5% Patch [Lidoderm 5% Patch] 1 patch TOPICAL DAILY 7 Days #7 patch Naproxen [Naprosyn] 500 mg PO Q12H PRN #30 tab PRN Reason: Pain Is patient prescribed a controlled substance at d/c from ED?: No Referrals: Evgeny Frank [Primary Care Provider] - 1-2 days Time of Disposition: 19:11
[2024-01-25] MEDS: KETOROLAC 15 MG/ML 1 ML VIAL IM STA (18:00)
[2024-01-25] MEDS: ORPHENADRINE 30 MG/ML 2 ML VIAL IM STA (18:01)
--- NOTE | 2024-01-25 18:32 | XR ---
EXAMINATION TYPE: XR ribs RT w pa chest xray DATE OF EXAM: 01/25/2024 6:28 PM COMPARISON: Chest radiograph 10/28/2022 CLINICAL INDICATION: Male, 33 years old with history of right rib pain; [facility] TECHNIQUE: XR ribs RT w pa chest xray; Frontal and oblique views of the ribs with frontal chest radio graph. FINDINGS: The ribs have a normal appearance. No evidence of fracture. Overall, the lungs are clear. The cardiac silhouette is normal in size. The remaining osseous structures are intact. IMPRESSION: No acute osseous pathology. [facility], , 01/25/2024 6:30 PM
[2024-01-25 19:23] VITALS: BP 144/90; PULSE 62; RESP 20
[2024-01-25] MEDS: LIDOCAINE 4% PATCH TOPICAL ONE (19:23)
== END 2024-01-25 19:38 | disposition home or self-care (01) ==
LOC: SUPCPDRO 17:10 → EC 17:10
DX: S29.011A Strain of muscle and tendon of front wall of thorax, initial encounter (principal); F17.200 Nicotine dependence, unspecified, uncomplicated; X58.XXXA Exposure to other specified factors, initial encounter
CPT/HCPCS: 71101; 99284; 96372 ×2; J2360; J1885

== ENCOUNTER 2024-02-04 18:03 | Inpatient (IN) | payer MEDICAID, OTHER ==
--- NOTE | 2024-02-04 18:12 | ED ---
Psych HPI - General Stated Complaint: Mental health eval Time Seen by Provider: 02/04/24 18:07 Source: RN notes reviewed, old records reviewed Mode of arrival: ambulatory Limitations: no limitations - History of Present Illness Initial Comments: 33-year-old male to ER for evaluation patient was today for evaluation of acute psychosis brought in by PD for significant psychiatric need for psychiatric evaluation history of psychosis this is a MD Complaint: altered mental status -: unknown Associated Psychiatric Symptoms: racing thoughts, auditory hallucinations, visual hallucinations, delusions Quality: constant Improves With: none Worsens With: none Associated Symptoms: denies other symptoms Treatments Prior to Arrival: placed on mental health hold - Related Data Home Medications Medication Instructions Recorded Confirmed Lurasidone [Latuda] 20 mg PO DAILY 02/04/24 02/04/24 PARoxetine HCL 30 mg PO DAILY 02/04/24 02/04/24 QUEtiapine [SEROquel] 50 mg PO HS PRN 02/04/24 02/04/24 cloNIDine HCL 0.1 mg PO BID 02/04/24 02/04/24 hydroCHLOROthiazide [Hydrodiuril] 12.5 mg PO DAILY 02/04/24 02/04/24 tiZANidine [Zanaflex] 2 mg PO Q8HR PRN 02/04/24 02/04/24 Previous Rx's Medication Instructions Recorded Naproxen [Naprosyn] 500 mg PO Q12H PRN #30 tab 01/25/24 Allergies Allergy/AdvReac Type Severity Reaction Status Date / Time No Known Allergies Allergy Verified 02/04/24 19:02 Review of Systems ROS Statement: Those systems with pertinent positive or pertinent negative responses have been documented in the HPI. ROS Other: All systems not noted in ROS Statement are negative. Past Medical History Past Medical History: Hypertension History of Any Multi-Drug Resistant Organisms: None Reported Past Surgical History: No Surgical Hx Reported Past Anesthesia/Blood Transfusion Reactions: No Reported Reaction Past Psychological History: Depression Smoking Status: Current every day smoker Past Alcohol Use History: Rare Past Drug Use History: Marijuana General Exam General appearance: alert, in no apparent distress Head exam: Present: atraumatic, normocephalic, normal inspection Eye exam: Present: normal appearance, PERRL, EOMI. Absent: scleral icterus, conjunctival injection, periorbital swelling ENT exam: Present: normal exam, mucous membranes moist Neck exam: Present: normal inspection. Absent: tenderness, meningismus, l ymphadenopathy Respiratory exam: Present: normal lung sounds bilaterally. Absent: respiratory distress, wheezes, rales, rhonchi, stridor Cardiovascular Exam: Present: regular rate, normal rhythm, normal heart sounds. Absent: systolic murmur, diastolic murmur, rubs, gallop, clicks GI/Abdominal exam: Present: soft, normal bowel sounds. Absent: distended, tenderness, guarding, rebound, rigid Extremities exam: Present: normal inspection, full ROM, normal capillary refill. Absent: tenderness, pedal edema, joint swelling, calf tenderness Back exam: Present: normal inspection Neurological exam: Present: alert, oriented X3, CN II-XII intact Psychiatric exam: Present: normal affect, normal mood Skin exam: Present: warm, dry, intact, normal color. Absent: rash Course Vital Signs 02/04/24 02/05/24 18:06 00:43 Temperature 97.9 F Pulse Rate 88 97 Respiratory 18 18 Rate Blood Pressure 153/105 117/78 O2 Sat by Pulse 96 99 Oximetry - Reevaluation(s) Reevaluation #1: 02/04/24 19:28 Medical records reviewed Reevaluation #2: 02/04/24 19:28 Clear for psychiatric evaluation Reevaluation #3: Was pt. sent in by a medical professional or institution ([facility], HANDBAG OPERATOR, urgent care, hospital, or half-way...) When possible be specific @ -no Did you speak to anyone other than the patient for history (EMS, parent, family, police, friend...)? What history was obtained from this source @ -no Did you review nursing and triage notes (agree or disagree)? Why? @ -agree Are old charts reviewed (outside hosp., previous admission, EMS record, old EKG, old radiological studies, urgent care reports/EKG's, half-way records)? Report findings @ -yes Differential Diagnosis (chest pain, altered mental status, abdominal pain women, abdominal pain men, vaginal bleeding, weakness, fever, dyspnea, syncope, headache, dizziness, GI bleed, back pain, seizure, CVA, palpatations, mental health, musculoskeletal)? @ -prior EKG interpreted by me (3pts min.). @ -no X-rays interpreted by me (1pt min.). @ -no CT interpreted by me (1pt min.). @ -no U/S interpreted by me (1pt. min.). @ -no What testing was considered but not performed or refused? (CT, X-rays, U/S, labs)? Why? @ -none What meds were considered but not given or refused? Why? @ -none Did you discuss the management of the patient with other professionals (professionals i.e. DrRandee, PA, HANDBAG OPERATOR, lab, RT, psych nurse, social media strategist, milk sampler, teacher, recreation officer, egg caser)? Give summary @ -no Was smoking cessation discussed for >3mins.? @ -no Was critical care preformed (if so, how long)? @ -no Were there social determinants of health that impacted care today? How? (Homelessness, low income, unemployed, alcoholism, drug addiction, transportation, low edu. Level, literacy, decrease access to med. care, [facility], rehab)? @ -none Was there de-escalation of care discussed even if they declined (Discuss DNR or withdrawal of care, Hospice)? DNR status @ -no What co-morbidities impacted this encounter? (DM, HTN, Smoking, COPD, CAD, Cancer, CVA, ARF, Chemo, Hep., AIDS, mental health diagnosis, sleep apnea, morbid obesity)? @ -none Was patient admitted / discharged? Hospital course, mention meds given and route, prescriptions, significant lab abnormalities, going to OR and other pertinent info. @ - 33 male seen evaluate psychiatry will admit for psychiatric evaluation and treatment Transferred to psychiatric evaluation Undiagnosed new problem with uncertain prognosis? @ -no Drug Therapy requiring intensive monitoring for toxicity (Heparin, Nitro, Insulin, Cardizem)? @ -no Were any procedures done? @ -no Diagnosis/symptom? @ -Depression and psychosis Acute, or Chronic, or Acute on Chronic? @ -Acute Uncomplicated (without systemic symptoms) or Complicated (systemic symptoms)? @ -Complicated Side effects of treatment? @ -no Exacerbation, Progression, or Severe Exacerbation? @ -exacerbation Poses a threat to life or bodily function? How? (Chest pain, [place], [place], pneumonia, PE, COPD, DKA, ARF, appy, cholecystitis, CVA, Diverticulitis, Homicidal, Suicidal, threat to staff... and all critical care pts) @ -yes psychiatric evaluation Reevaluation #4: Differential Mental Health Depression, anxiety, bipolar, psychosis, schizophrenia, borderline personality, situational depression, adjustment disorder, behavioral disorder, brain tumor, malingering, substance abuse, encephalopathy, medication reaction, dementia, hypothyroidism, degenerative neurologic disorder, lupus.... This is not meant to be all-inclusive list Medical Decision Making - Medical Decision Making 33 male seen evaluate psychiatry will admit for psychiatric evaluation and treatment - Lab Data Result diagrams: 02/05/24 08:03 02/05/24 08:03 Lab Results 02/04/24 Range/Units 20:49 Influenza Type A (PCR) Not Detected (Not Detectd) Influenza Type B (PCR) Not Detected (Not Detectd) RSV (PCR) Not Detected (Not Detectd) SARS-CoV-2 (PCR) Not Detected (Not Detectd) Disposition Clinical Impression: Acute psychosis, Psychosis, Methamphetamine use disorder, moderate, Cannabis use disorder, Major depressive disorder, recurrent episode, moderate, Methamph etamine abuse in remission Disposition: TRANSFER TO PSYCH HOSP/UNIT Condition: Fair Is patient prescribed a controlled substance at d/c from ED?: No
[2024-02-04] MEDS ORDERED: HALOPERIDOL LACTATE 5 MG/ML 1 ML VIAL IM PRN (23:15)
[2024-02-04] MEDS ORDERED: haloperidoL 5 MG TAB PO PRN (23:15)
[2024-02-04] MEDS ORDERED: IBUPROFEN 600 MG TAB PO PRN (23:15)
[2024-02-04] MEDS ORDERED: MAG HYDROX/AL HYDROX/SIMETH 355 ML BOTTLE PO PRN (23:15)
[2024-02-04] MEDS ORDERED: LORazepam 2 MG/ML INJ IM PRN (23:15)
[2024-02-04] MEDS ORDERED: MAGNESIUM HYDROXIDE 2,400 MG/30 ML CUP PO PRN (23:15)
[2024-02-04] MEDS ORDERED: ACETAMINOPHEN TAB 325 MG TAB PO PRN (23:15)
[2024-02-04] MEDS ORDERED: LORazepam 1 MG TAB PO PRN (23:15)
[2024-02-04] MEDS ORDERED: tiZANidine 4 MG TAB PO PRN (23:19)
[2024-02-05] MEDS: QUEtiapine 50 MG TAB PO PRN (01:25)
[2024-02-05 03:45] LABS: Amphetamine Screen,Urine Not Detected (NotDetected); Barbiturate Screen,Urine Not Detected (NotDetected); Benzodiazepines Screen,Urine Not Detected (NotDetected); Cocaine Screen,Urine Not Detected (NotDetected); Methadone Screen, Urine Not Detected (NotDetected); Opiate Screen,Urine Not Detected (NotDetected); Oxycodone Screen, Urine Not Detected (NotDetected); Phencyclidine Screen,Urine Not Detected (NotDetected); Tricyclic Antidepressant,Urine Not Detected (NotDetected); Urn Cannabinoid Scrn Detected (NotDetected)
[2024-02-05 08:18] LABS: Basophils # (A) 0.1 k/uL (0-0.2); Basophils % (A) 1 %; Eosinophils # (A) 0.2 k/uL (0-0.7); Eosinophils % (A) 3 %; HGB 14.6 gm/dL (13.0-17.5); Lymphocytes # (A) 3.5 k/uL (1.0-4.8); Lymphocytes % (A) 45 %; MCH 30.2 pg (25.0-35.0); MCHC 33.9 g/dL (31.0-37.0); MCV 89.1 fL (80.0-100.0); Mean Platelet Volume 6.9; Monocytes # (A) 0.7 k/uL (0-1.0); Monocytes % (A) 9 %; Neutrophils % (A) 40 %; Platelet Count 336 k/uL (150-450); RBC 4.83 m/uL (4.30-5.90); RDW 12.4 % (11.5-15.5); WBC 7.6 k/uL (3.8-10.6)
[2024-02-05] MEDS: cloNIDine HCL 0.1 MG TAB PO SCH (08:37)
[2024-02-05] MEDS: hydroCHLOROthiazide 12.5 MG CAP PO SCH (08:37)
[2024-02-05] MEDS: LURASIDONE 20 MG TAB PO SCH (08:37)
[2024-02-05] MEDS: PARoxetine 10 MG TAB PO SCH (08:37)
[2024-02-05] MEDS: NICOTINE 14MG/24HR PATCH TRANSDERM SCH (08:37)
[2024-02-05 08:49] LABS: ALT 32 U/L (4-49); AST 32 U/L (17-59); African American GFR (CKD) >90 (>60 ml/min/1.73 sqM); Albumin 4.9 g/dL (3.5-5.0); Alkaline Phosphatase 101 U/L (38-126); Anion Gap 8 mmol/L; Bilirubin, Delta 0.1 mg/dL (0.0-0.2); Bilirubin,Unconjugated 0.5 mg/dL (0.0-1.1); Blood Urea Nitrogen 16 mg/dL (9-20); Calcium 9.4 mg/dL (8.4-10.2); Carbon Dioxide 28 mmol/L (22-30); Chloride 103 mmol/L (98-107); Glucose 100 mg/dL (74-99); Non-African American GFR(CKD) >90 (>60 ml/min/1.73 sqM); Sodium 139 mmol/L (137-145); Total Bilirubin 0.6 mg/dL (0.2-1.3); Total Protein 7.8 g/dL (6.3-8.2)
[2024-02-05 09:30] LABS: Bilirubin,Urine Negative (Negative); Blood,Urine Trace (Negative); Calcium Oxalate Crystals,Urine Moderate /hpf; Color,Urine Yellow; Glucose,Urine (UA) Negative (Negative); Ketones,Urine 3+ (Negative); Leukocyte Esterase,Urine Negative (Negative); Mucus,Urine Many /hpf; Nitrite,Urine Negative (Negative); Protein,Urine 1+ (Negative); RBC,Urine 10 /hpf (0-5); Specific Gravity,Urine 1.034 (1.001-1.035); WBC,Urine 4 /hpf (0-5)
[2024-02-05 09:33] LABS: Appearance,Urine Cloudy (Clear)
[2024-02-05 16:00] LABS: LDL Cholesterol,Calculated 127.1 mg/dL (0.0-131.0)
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
[2024-02-06] MEDS: PARoxetine 20 MG TAB PO SCH (08:31)
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
[2024-02-07] MEDS: LURASIDONE 40 MG TAB PO SCH (08:01)
[2024-02-07] MEDS: NAPROXEN 250 MG TAB PO PRN (08:02)
--- NOTE | 2024-02-07 13:22 | P.PN ---
Progress Note - Text Progress Note Date: 02/07/24 Dictation was produced using [employer] dictation software. Please excuse any grammatical, word or spelling errors. Interval history: He states that he is feeling well today, reported that getting along well with everyone. The depression and anxiety to be at the moderate side, admitted to good sleep last night however he asked for Seroquel, patient was educated on Seroquel usage to avoid side effects, agreed with adding melatonin at night to help and may consider Seroquel if that does not work. He denied any current SI/HI or AVH. Reported that nitric oxide is coming out of his system. States that he is compliant with his medication, denied any current side effects. Denied any muscle stiffness, rigidity, abnormal movement, or drooling. Agreed with increasing Latuda today. He reported that since he started to sleep he feels like he is improving. He has no other concerns at this time. MENTAL STATUS EXAM: General Appearance: Patient appears to be stated age is alert, directable, and attempts to cooperate. Patient appears to have fair hygiene and grooming. Behavior: Patient is seated without any agitated behavior. Speech: Patient's speech is fluent and nonpressured. Mood/Affect: Patient reports their mood is "fine", affect is congruent and constricted. Suicidality/Homicidality: Patient denies having any homicidal ideation intent or plan. Denies any suicidal ideations intent or plan Perceptions: Patient denies any visual hallucinations and denies any auditory hallucinations Though content/process: There is no evidence of any delusional thought content and thought process is linear and goal-directed. Memory and concentration: AOX3, grossly intact for the purposes of this session. Can spell "WORLD" backwards Judgment and insight: is improving IMPRESSIONS: Schizophrenia and other unspecified psychotic disorder Rule out substance-induced psychosis Rule out bipolar disorder with psychotic feature Cannabis use disorder Nicotine dependence History of methamphetamine abuse PLAN: -Patient is admitted with petition and clinical certification, he signed voluntary status to [facility] for stabilization of psychiatric symptoms and safety. -Medications : Increase Latuda 40 mg p.o. daily Seroquel 50 mg p.o. prn at bedtime Start Melatonin 5 mg po hs Continue Paxil 20 mg po daily, plan to taper down and discontinue prior to discharge, plan to switch to another SSRI -Ativan and Haldol PRN for agitation/aggression -Patient was counselled on substance abuse and desired to cut back on use -Patient was informed of the risks, benefits and side effects of the medication and patient verbally consented to taking the medications. Patient signed med consent form and was placed in chart. -Internal Medicine consult to perform medical evaluation and physical. -NRT - nicotine patch -SW on board for discharge planning. Encourage patient to participate in groups to work on coping skills.
[2024-02-07] MEDS: MELATONIN 5 MG TABLET PO SCH (21:26)
--- NOTE | 2024-02-08 01:40 | P.CONS ---
History of Present Illness - Reason for Consult Consult date: 02/07/24 - History of Present Illness The patient is a 33-year-old male with a PMH of substance abuse who had presented to the emergency room by police for psychiatric evaluation for psychosis. The patient was admitted to the mental health unit where he was seen and evaluated. The patient reports that he has recently been inhaling nitrous oxide as it gives him a euphoric affect. He denies any additional substance use. He denies alcohol or tobacco use. Denies any physical complaints. Denied experiencing chest discomfort, shortness of breath, fever, chills, cough, nausea, vomiting, abdominal pain, diarrhea. Review of systems: Pertinent positives and negatives as discussed in HPI, a complete review of systems was performed and all other systems are negative. Physical examination: General: non toxic, no distress, appears at stated age, obese Derm: no unusual rashes/lesions, no unusual ecchymoses, warm, dry Head: atraumatic, normocephalic, symmetric Eyes: EOMI, no lid lag, anicteric sclera ENT: Nose and ears atraumatic, no thrush, no pharyngeal erythema Neck: trachea midline, supple Mouth: no lip lesion, mucus membranes moist Cardiovascular: S1S2 reg, no murmur, no edema Lungs: CTA bilateral, no rhonchi, no rales , no accessory muscle use Abdominal: soft, nontender to palpation, no guarding Ext: no gross muscle atrophy, no contractures, Neuro: No gross focal neuro deficits noted Psych: Alert, oriented, appropriate affect Assessment: Polysubstance abuse including inhalants and marijuana Psychosis Imaging: None performed Data Review: Reviewed with WBC count 7.6, hemoglobin 14.6, sodium 139, potassium 4.0, BUN 16, creatinine 1.01, urine toxicology positive for marijuana Plan: Advised on the importance of cessation from substance use Defer management of psychosis to primary team Thank you for allowing us to participate in the care of this patient. We will follow peripherally. Do not hesitate to contact us with questions. Someone can be reached from the [facility] hospitalist group at all hours of the day at [phone]. Past Medical History Past Medical History: Hypertension History of Any Multi-Drug Resistant Organisms: None Reported Past Surgical History: No Surgical Hx Reported Past Anesthesia/Blood Transfusion Reactions: No Reported Reaction Past Psychological History: Depression Smoking Status: Light tobacco smoker Past Alcohol Use History: Rare Past Drug Use History: Marijuana, Methamphetamine Additional Drug Use History / Comment(s): Pt states he used to be addicted to meth Medications and Allergies Home Medications Medication Instructions Recorded Confirmed Type Naproxen [Naprosyn] 500 mg PO Q12H PRN #30 tab 01/25/24 02/04/24 Rx Lurasidone [Latuda] 20 mg PO DAILY 02/04/24 02/04/24 History PARoxetine HCL 30 mg PO DAILY 02/04/24 02/04/24 History QUEtiapine [SEROquel] 50 mg PO HS PRN 02/04/24 02/04/24 History cloNIDine HCL 0.1 mg PO BID 02/04/24 02/04/24 History hydroCHLOROthiazide [Hydrodiuril] 12.5 mg PO DAILY 02/04/24 02/04/24 History tiZANidine [Zanaflex] 2 mg PO Q8HR PRN 02/04/24 02/04/24 History Allergies Allergy/AdvReac Type Severity Reaction Status Date / Time No Known Allergies Allergy Verified 02/04/24 19:02 Physical Exam Vitals: Vital Signs Pulse BP Pulse Ox 02/07/24 21:25 68 134/100 97 Results CBC & Chem 7: 02/05/24 08:03 02/05/24 08:03
[2024-02-08 09:09] VITALS: RESP 16
--- NOTE | 2024-02-08 12:52 | P.PN ---
Progress Note - Text Progress Note Date: 02/08/24 Interval history: Patient was seen taking part in group and interacting with others and was dir ectable and agreeable to speak with technical publications writer. Claims that he did get a bit frustrated with another patient this morning because he was messing with his food. Claims that he is feeling bit better today compared to yesterday. Claims that he was feeling a bit groggy this morning however did sleep through the night no problems. Has a fair appetite, claims that his mood and anxiety been improving, fairly pleasant during interaction. At this time patient denies any suicidal or homicidal ideations intent or plan. Denies any Auditory or visual hallucinations. Patient denies any side effects from the medications and has been compliant with meds. Mental status exam: General Appearance: Patient appears to be stated age is alert, directable, and cooperative. Behavior: No agitated behavior. Patient is calm and directable pleasant and cooperative Speech: Patient's speech is fluent and nonpressured. Mood/Affect: Mood is improving mildly, affect is congruent and improving affect Suicidality/Homicidality: Patient denies having any suicidal or homicidal ideation intent or plan. Perceptions: Patient denies any auditory or visual hallucinations. Though content/process: There is no evidence of any delusional thought content and thought process is linear and goal-directed. Memory and concentration: AOX3, grossly intact for the purposes of this session Judgment and insight: improving mildly Assessment/Plan: Continue with current diagnosis. Patient continues to meet criteria for inpatient psychiatric admission for symptom stabilization and safety. Patient will be maintained on current psychotropic medication regimen. Monitor for medication compliance and for any psychotropic medication side effects. Will continue to monitor ongoing response to treatment. Encouraged participation in milieu.
[2024-02-09] MEDS ORDERED: ONDANSETRON 4 MG TAB PO PRN (10:51)
--- NOTE | 2024-02-09 10:52 | P.PN ---
Progress Note - Text Progress Note Date: 02/09/24 Interval history: Patient was seen taking part in group and sitting in the lounge. he was direc table and agreeable to speak with marine underwriter. Claims that he was feeling a bit nauseous yesterday and a bit today mainly from medications. Claims that overall he is doing much better. He said he did sleep better last night. Has a fair appetite, claims that his mood and anxiety been improving, fairly pleasant during interaction. At this time patient denies any suicidal or homicidal ideations intent or plan. Denies any Auditory or visual hallucinations. Patient denies any side effects from the medications and has been compliant with meds. Mental status exam: General Appearance: Patient appears to be stated age is alert, directable, and cooperative. Behavior: No agitated behavior. Patient is calm and directable pleasant and cooperative, improving Speech: Patient's speech is fluent and nonpressured. Mood/Affect: Mood is improving mildly, affect is congruent and improving affect Suicidality/Homicidality: Patient denies having any suicidal or homicidal ideation intent or plan. Perceptions: Patient denies any auditory or visual hallucinations. Though content/process: There is no evidence of any delusional thought content and thought process is linear and goal-directed. Future oriented Memory and concentration: AOX3, grossly intact for the purposes of this session Judgment and insight: improving mildly Assessment/Plan: Continue with current diagnosis. Patient continues to meet criteria for inpatient psychiatric admission for symptom stabilization and safety. Patient will be maintained on current psychotropic medication regimen. With the exception of Zofran as needed for nausea/vomiting. Monitor for medication compliance and for any psychotropic medication side effects. Will continue to monitor ongoing response to treatment. Encouraged participation in milieu.
[2024-02-10 07:07] VITALS: BP 133/90; PULSE 65; TEMP 98.1
--- NOTE | 2024-02-10 14:23 | P.DS ---
Providers Date of admission: 02/04/24 23:11 Expected date of discharge: 02/10/24 Attending physician: Yvonne Griffith MD Consults: 02/04/24 23:15 Consult Physician Routine Consulting Provider: Stanley Physician Consult Reason/Comments: Medical H&P Do you want consulting provider notified?: Yes Primary care physician: Physician Nonstaff - Discharge Diagnosis(es) (1) Unspecified psychosis Current Visit: Yes Status: Acute Priority: High (2) Cannabis use disorder Current Visit: Yes Status: Acute Priority: Medium (3) Methamphetamine abuse in remission Current Visit: No Status: Chronic Priority: Low (4) Nicotine dependence Current Visit: Yes Status: Acute Priority: Low Hospital Course: Admission HPI: Admission note was completed by Alix "Patient presented to the hospital via police, making manic statements about being in psychosis, having incoherent speech and difficulty thinking. He was asking if he hurt his family and had some trouble memorizing what happened to him. He was making some bizarre and disorganized statements during admission. Upon evaluation in the unit he states that he cannot member what happened and why he is in the hospital, reported that he had some sort of a court date on 01/27 for his mental illness and reported that did not go well. He states that he is currently on probation and does not know for what reason. He states that he has been using alcohol and nitrous oxide and reported that could be made him manic and psychotic, reported that he is coming out of that now. States that he just want to sleep. He states that he was using nitrous oxide a lot since it does not show up and has UDS, reported that he start having racing thoughts about " who come first God, Bible, or Octavio," and reported that he was fixated on that thought. He states that he was angry and he broke a window at his grandmother house. He admitted to talking to self at that time. Reported that he was chewing and spitting out his medications. He states that he had few days without sleep and was not eating much. States that he reset his phone during that time and called 911 help. He reported that he feels depressed at times however denied feeling helpless, hopeless, worthless, denied any current suicidal, or homicidal thoughts or behavior, ported that he has prior history of suicidal thoughts when he was a teenager. He reported that he has been having racing thoughts, flights of ideas, sleep, talking to self, but he reported all of that related to using the nitric oxide. He denied any current auditory or visual hallucination, paranoia or delusion. He reported that he felt paranoid when he used to nitric oxide however that has been improving. Admitted to using alcohol and nitric oxide, denied using any other substance." Hospital course: Upon admission to the unit patient was directable and agreeable to commence treatment and signed adult voluntary form.. Patient got along well with other patients on the unit and followed unit protocol. Patient was compliant with the medications and denied any side effects throughout hospital course. Patient was started on Latuda 40 mg daily for psychosis, melatonin 5 mg at bedtime for s leep, Paxil decreased to 20 mg daily with a plan to discontinue this medication outpatient. Patient spoke of his stressors and engaged in therapy both group and individual. Patient was also seen by medical team for history and physical exam. Throughout the course of the hospitalization patient gradually improved with regards to mood, anxiety, sleep and returned back to their baseline level of functioning. On the day of discharge patient denied any suicidal or homicidal ideations intent or plan denied any auditory or visual hallucinations. The patient denied any access to guns or weapons. Patient denied any paranoia and did not endorse any delusions. Patient does have a significant history of substance abuse and was counseled on abstaining from all substances including alcohol and marijuana. Patient was also counseled on the medications and need for regular compliance and was encouraged to follow-up with their outpatient appointment for mental health and also for primary care. Patient to be discharged back home with family with [facility] and [facility] follow-up. Mental status exam: General Appearance: Patient appears to be stated age is alert, pleasant, and cooperative. Patient is in no acute distress and has improved hygiene and grooming Behavior: Patient is calmly seated without any agitated behavior. Speech: Patient's speech is fluent and nonpressured. Mood/Affect: Patient reports their mood is "better", affect is congruent and euthymic. Suicidality/Homicidality: Patient denies having any suicidal or homicidal ideation intent or plan. Perceptions: Patient denies any auditory or visual hallucinations. Though content/process: There is no evidence of any delusional thought content and thought process is linear and goal-directed. More future oriented Memory and concentration: AOX3, grossly intact for the purposes of this session. Can spell "WORLD" backwards correctly. Judgment and insight: Chronically poor, however has improved with guarded prognosis Impression: Psychosis unspecified Cannabis use disorder Nicotine dependence History of methamphetamine abuse Plan: -Continue with discharge today as patient has improved and stabilized psychiatrically and is not currently an imminent threat to themself and/or others. -Continue medications: Latuda 40 mg daily, melatonin 5 mg at bedtime, Paxil 20 mg daily -Patient was counseled on the need for medication compliance and appropriate follow-up at mental health and also primary care for medical issues. Patient verbalized understanding and agreed. -Social work to help coordinate patients discharge today. also to ensure safe home environment that guns/weapons are either removed from the home or locked away. Social work also to arrange for patients follow up appointments with [facility] for psychiatric care along with follow up with primary care provider. -Patient counseled on abstaining from recreational drugs and marijuana and alcohol. Was informed/educated on the adverse effects on their physical and ment al health. Patient verbally agreed and understood. -Patient was instructed to return to the hospital or seek immediate medical care if their psychiatric or medical symptoms do worsen or reoccur. Abnormal Labs 02/05/24 02/05/24 02/05/24 01:21 01:21 08:03 Glucose 100 H Triglycerides 163.00 H HDL Cholesterol 31.30 L Urine Protein 1+ H Urine Ketones 3+ H Urine Blood Trace H Urine RBC 10 H Calcium Oxalate Crystal Moderate H Urine Mucus Many H U Marijuana (THC) Screen Detected H Vital Signs Temp 98.1 F 02/10/24 07:06 Pulse 65 02/10/24 07:06 Resp 16 02/08/24 09:08 BP 133/90 02/10/24 07:06 Pulse Ox 100 02/10/24 07:06 FiO2 Intake & Output 02/09/24 02/10/24 02/10/24 18:59 06:59 18:59 Weight 114.2 kg Allergies Allergy/AdvReac Type Severity Reaction Status Date / Time No Known Allergies Allergy Verified 02/04/24 19:02 Patient Condition at Discharge: Stable Plan - Discharge Summary Discharge Rx Participant: Yes New Discharge Prescriptions: New PARoxetine [Paxil] 20 mg PO DAILY 30 Days #30 tab Nicotine 14Mg/24Hr Patch [Habitrol] 1 patch TRANSDERM DAILY patch Lurasidone [Latuda] 40 mg PO DAILY 30 Days #30 tab Melatonin 5 mg PO HS 30 Days #30 tab Continue tiZANidine [Zanaflex] 2 mg PO Q8HR PRN 30 Days #30 tab PRN Reason: Muscle Spasm cloNIDine HCL 0.1 mg PO BID 30 Days #60 tab Discontinued Naproxen [Naprosyn] 500 mg PO Q12H PRN #30 tab PRN Reason: Pain PARoxetine HCL 30 mg PO DAILY hydroCHLOROthiazide [Hydrodiuril] 12.5 mg PO DAILY Lurasidone [Latuda] 20 mg PO DAILY QUEtiapine [SEROquel] 50 mg PO HS PRN PRN Reason: sleep/anxiety Discharge Medication List Lurasidone [Latuda] 40 mg PO DAILY 30 Days #30 tab 02/10/24 [Rx] Melatonin 5 mg PO HS 30 Days #30 tab 02/10/24 [Rx] Nicotine 14Mg/24Hr Patch [Habitrol] 1 patch TRANSDERM DAILY patch 02/10/24 [Rx] PARoxetine [Paxil] 20 mg PO DAILY 30 Days #30 tab 02/10/24 [Rx] cloNIDine HCL 0.1 mg PO BID 30 Days #60 tab 02/10/24 [Rx] tiZANidine [Zanaflex] 2 mg PO Q8HR PRN 30 Days #30 tab 02/10/24 [Rx] Follow up Appointment(s)/Referral(s): [place] [facility] [Outside] - 02/14/24 1:00 pm (02/13 at 1pm with MACHO 03/10 at 3:30pm with Mell Oneill NP) Nonstaff,Physician [Primary Care Provider] - 1-2 days Activity/Diet/Wound Care/Special Instructions: [facility] Discharge Info Avoid the use of street drugs and alcohol. Take all medications as prescribed. When you are in need of refills on your medications, please contact your outpatient medical provider and/or outpatient psychiatrist. Please go to your scheduled outpatient appointments for aftercare treatment. If symptoms return or become worse, call the crisis line at or and/or visit the nearest emergency room for assistance. [place] [facility] Lifeline - call or text 988 Discharge Disposition: HOME SELF-CARE
== END 2024-02-10 17:40 | disposition home or self-care (01) | DRG 751 ==
LOC: EC 18:03 → 3MHU 23:11
PROVIDERS: ADMIT Psychiatry & Neurology Psychiatry; ATTEND Psychiatry & Neurology Psychiatry
DX: F29 Unspecified psychosis not due to a substance or known physiological condition (principal); F20.9 Schizophrenia, unspecified; F33.1 Major depressive disorder, recurrent, moderate; F17.210 Nicotine dependence, cigarettes, uncomplicated; R45.851 Suicidal ideations; I10 Essential (primary) hypertension; F41.9 Anxiety disorder, unspecified; F15.21 Other stimulant dependence, in remission; Z79.899 Other long term (current) drug therapy; Z91.199 Patient's noncompliance with other medical treatment and regimen due to unspecified reason; F12.10 Cannabis abuse, uncomplicated; Z71.51 Drug abuse counseling and surveillance of drug abuser; Z71.6 Tobacco abuse counseling; Z81.8 Family history of other mental and behavioral disorders; Z65.3 Problems related to other legal circumstances
CPT/HCPCS: 80053; 80061; 80306; 81001; 82075; 82248; 83036; 84443; 85025; 87636; 99285